=== PATIENT | female | born 1960 | race Caucasian/White ===

== ENCOUNTER 2019-07-29 10:16 | Emergency (ER) | payer MEDICARE ==
[~2019-07-29] VITALS: Ht 162.6 cm; Wt 113.6 kg
[2019-07-29 11:09] LABS: BASOPHILS 0.2 % (0-2); EOSINOPHILS 1.2 % (0-7); HEMATOCRIT 32.4 % (36.0-48.0); HEMOGLOBIN 10.4 g/dL (12-16); IMMATURE GRANULOCYTES 0.4 % (0-5); LYMPHOCYTES 21.2 % (15-50); MCH 26.1 pg (26.0-34.0); MCHC 32.1 g/dL (31.0-37.0); MCV 81.4 fL (80.0-100.0); MEAN PLATELET VOLUME 9.3 fL (7.4-10.4); MONOCYTES 10.3 % (2-11); NEUTROPHILS 66.7 % (40-80); PLATELET COUNT 292 10x3/uL (130-400); RBC 3.98 10x6/uL (4.00-5.40); RDW 15.2 % (11.5-14.5); WBC 9.6 10x3/uL (4.8-10.8)
[2019-07-29 11:17] LABS: CALC OSMOLALITY 248 mosm/kg (275-300); CALCIUM 8.4 mg/dL (8.5-10.1); CARBON DIOXIDE 24.8 mmol/L (21.0-32.0); CHLORIDE - SERUM 92 mmol/L (98-107); CREATININE - SERUM 0.8 mg/dL (0.6-1.3); GLUCOSE 105 mg/dL (74-106); SODIUM 125 mmol/L (136-145); UREA NITROGEN 3 mg/dL (7-18); eGFR NON AFRICAN AMERICAN 78 mL/min (90-120)
[2019-07-29] MEDS ORDERED: ANUSOL-HC25 MG RC (11:20)
[2019-07-29] MEDS ORDERED: TYLENOL ARTHRI650 MG PO (11:20)
[2019-07-29] MEDS ORDERED: BUSPAR5 MG PO (11:21)
[2019-07-29] MEDS ORDERED: BAYER CHEWABLE81 MG PO (11:21)
[2019-07-29] MEDS ORDERED: DONEPEZIL HCL10 MG PO (11:23)
[2019-07-29] MEDS ORDERED: DEPAKOTE ER250 MG PO (11:23)
[2019-07-29] MEDS ORDERED: COLACE100 MG PO (11:23)
[2019-07-29] MEDS ORDERED: BUTALB-APAP-CA1 EACH PO (11:24)
[2019-07-29] MEDS ORDERED: OMEGA-3100 MG PO (11:25)
[2019-07-29 11:27] LABS: ALBUMIN 3.2 g/dL (3.4-5.0); ALKALINE PHOSPHATASE 103 U/L (46-116); ALT (SGPT) 20 U/L (10-68); AMYLASE - SERUM 42 U/L (25-115); BILIRUBIN - TOTAL 0.25 mg/dL (0.2-1.3); LIPASE 175 U/L (73-393); TROPONIN-I < 0.017 ng/mL (0.000-0.060)
[2019-07-29] MEDS ORDERED: FISH OIL PO (11:27)
[2019-07-29] MEDS ORDERED: GUAIFENESI100 MG/5 M PO (11:28)
[2019-07-29] MEDS ORDERED: KEPPRA500 MG PO (11:38)
[2019-07-29] MEDS ORDERED: TIROSINT75 MCG PO (11:39)
[2019-07-29] MEDS ORDERED: LINZESS145 MCG PO (11:40)
[2019-07-29] MEDS ORDERED: MOBIC7.5 MG PO (11:40)
[2019-07-29] MEDS ORDERED: PROTONIX40 MG PO (11:41)
[2019-07-29] MEDS ORDERED: NAMENDA5 MG PO (11:41)
[2019-07-29] MEDS ORDERED: K-DUR20 MEQ PO (11:42)
[2019-07-29] MEDS ORDERED: SEROQUEL100 MG PO (11:42)
[2019-07-29] MEDS ORDERED: TRAZODONE HCL150 MG PO (11:43)
[2019-07-29] MEDS ORDERED: SEROQUEL300 MG PO (11:43)
[2019-07-29] MEDS ORDERED: ZOLOFT100 MG PO (11:43)
--- NOTE | 2019-07-29 11:43 | NUR ---
DR ISRAEL NOTIFIED AND REVIEWED PT'S BEHAVIOR AND ASSESSMENT RESULTS. PT IS A LOW RISK PER DR ISRAEL. DR. ISRAEL STATED TO GIVE RESOURCES TO PT AT TIME OF DISCHARGE. NO FURTHER ORDERS AT THIS TIME. RESOURCES REVIEWED WITH PT AND SHE VERBALIZED UNDERSTANDING.
[2019-07-29] MEDS ORDERED: ZYPREXA10 MG PO (11:44)
[2019-07-29 12:28] LABS: APPEARANCE CLEAR (CLEAR); BILIRUBIN NEGATIVE (NEGATIVE); COLOR COLORLESS (YELLOW); GLUCOSE NEGATIVE (NEGATIVE); KETONE NEGATIVE (NEGATIVE); NITRITE NEGATIVE (NEGATIVE); PROTEIN NEGATIVE (NEGATIVE); UROBILINOGEN NORMAL (NORMAL)
[2019-07-29 16:19] VITALS: Ht 162.6 cm; Wt 113.6 kg
[2019-07-29 22:30] VITALS: BP 105/70
== END 2019-07-29 22:30 | disposition other institution (70) ==
LOC: D.ER 10:16
PROVIDERS: Family Medicine
DX: E87.1 Hypo-osmolality and hyponatremia (principal); R10.9 Unspecified abdominal pain; F60.3 Borderline personality disorder; K31.84 Gastroparesis; K56.609 Unspecified intestinal obstruction, unspecified as to partial versus complete obstruction; E03.9 Hypothyroidism, unspecified; G62.9 Polyneuropathy, unspecified; R51 Headache

== ENCOUNTER 2019-08-03 09:46 | Inpatient (IN) | payer MEDICARE ==
[~2019-08-03] VITALS: Ht 162.6 cm; Wt 113.4 kg
[~2019-08-03 09:46] MED LIST: ANUSOL-HC25 MG RC; BAYER CHEWABLE81 MG PO; BUSPAR5 MG PO; BUTALB-APAP-CA1 EACH PO; COLACE100 MG PO; DEPAKOTE ER250 MG PO; DONEPEZIL HCL10 MG PO; FISH OIL PO; GUAIFENESI100 MG/5 M PO; K-DUR20 MEQ PO; KEPPRA500 MG PO; LINZESS145 MCG PO; MOBIC7.5 MG PO; NAMENDA5 MG PO; OMEGA-3100 MG PO; PROTONIX40 MG PO; SEROQUEL100 MG PO; SEROQUEL300 MG PO; TIROSINT75 MCG PO; TRAZODONE HCL150 MG PO; TYLENOL ARTHRI650 MG PO; ZOLOFT100 MG PO; ZYPREXA10 MG PO
--- NOTE | 2019-08-03 09:50 | NUR ---
PT AMB TO BR "I FEEL LIKE I NEED TO HAVE A BOWEL MOVEMENT" LARGE LIGHT BROWN WATERY STOOL
[2019-08-03 10:30] LABS: BASOPHILS 0.3 % (0-2); EOSINOPHILS 1.3 % (0-7); HEMATOCRIT 37.6 % (36.0-48.0); HEMOGLOBIN 11.8 g/dL (12-16); IMMATURE GRANULOCYTES 0.4 % (0-5); LYMPHOCYTES 25.6 % (15-50); MCH 26.5 pg (26.0-34.0); MCHC 31.4 g/dL (31.0-37.0); MCV 84.5 fL (80.0-100.0); MEAN PLATELET VOLUME 9.4 fL (7.4-10.4); MONOCYTES 13.1 % (2-11); NEUTROPHILS 59.3 % (40-80); PLATELET COUNT 287 10x3/uL (130-400); RBC 4.45 10x6/uL (4.00-5.40); RDW 15.9 % (11.5-14.5); WBC 7.5 10x3/uL (4.8-10.8)
[2019-08-03 10:47] LABS: CALC OSMOLALITY 261 mosm/kg (275-300); CALCIUM 8.4 mg/dL (8.5-10.1); CARBON DIOXIDE 22.7 mmol/L (21.0-32.0); CHLORIDE - SERUM 100 mmol/L (98-107); CREATININE - SERUM 0.8 mg/dL (0.6-1.3); GLUCOSE 85 mg/dL (74-106); POTASSIUM - SERUM 4.6 mmol/L (3.5-5.1); SODIUM 133 mmol/L (136-145); UREA NITROGEN 3 mg/dL (7-18); eGFR NON AFRICAN AMERICAN 78 mL/min (90-120)
--- NOTE | 2019-08-03 10:51 | NUR ---
URINE SPECIMEN OBTAINED, LABELED AT BS AND SENT TO LAB
[2019-08-03 10:55] LABS: ALBUMIN 3.3 g/dL (3.4-5.0); ALKALINE PHOSPHATASE 94 U/L (46-116); ALT (SGPT) 23 U/L (10-68); AMYLASE - SERUM 31 U/L (25-115); BILIRUBIN - TOTAL 0.25 mg/dL (0.2-1.3); LIPASE 145 U/L (73-393); PROTEIN - SERUM 7.1 g/dL (6.4-8.2)
[2019-08-03 10:56] LABS: TROPONIN-I < 0.017 ng/mL (0.000-0.060)
[2019-08-03 11:12] LABS: APPEARANCE CLEAR (CLEAR); BILIRUBIN NEGATIVE (NEGATIVE); COLOR YELLOW (YELLOW); GLUCOSE NEGATIVE (NEGATIVE); KETONE NEGATIVE (NEGATIVE); NITRITE NEGATIVE (NEGATIVE); PROTEIN NEGATIVE (NEGATIVE); SPECIFIC GRAVITY 1.015 (1.005-1.020); UROBILINOGEN NORMAL (NORMAL)
[2019-08-03 12:00] VITALS: BP 124/79
--- NOTE | 2019-08-03 12:24 | NUR ---
REPORT TO KATHY COLLADO
--- NOTE | 2019-08-03 12:30 | NUR ---
TRANSPORTED TO ROOM #2232, CONDITION STABLE. NGT PATENT UPON TRANSPORT. NS INFUSING UPON TRANSPORT TO ROOM
[2019-08-03 12:33] VITALS: BP 124/80
--- NOTE | 2019-08-03 12:42 | NUR ---
PATIENT TO ROOM AND TO BED AT THIS TIME., ADMITTED AND ASSESSED. IV INTACT. STATES SHE WANTS HER MEDS AT THIS TIME. EXPLAINED I HAD TO WAIT FOR THE PHYSICIAN TO OK THEM AND THAT RIGHT NOW SHE IS NPO. VERBALIZED UNDERSTANDING. CALL LIGHT WITHIN REACH.
--- NOTE | 2019-08-03 12:59 | MORECARE ---
CASE MANAGEMENT DISCHARGE SUMMARY PATIENT: ARTURO PITT UNIT: [id number] ADM DATE: 08/03/19 AGE: 59 : 64 SEX: F ROOM/BED: D.[facility]2 AUTHOR: HORTENCIA RADER PHYSICIAN: REFERRING PHYSICIAN: ABRAHAM CASTILLO MD DATE OF SERVICE: 08/03/19 Discharge Plan Patient Name: ARTURO PITT Facility: [facility]:[place] : 1960 Planned Disposition: SNF w Planned Readmission Anticipated Discharge Date: Discharge Date: Expected LOS: Initial Reviewer: [email or web address] Initial Review Date: 08/03/2019 Generated: 08/03/19 1:59 pm DCPIA - Discharge Planning Initial Assessment Updated by [email or web address]: Bel Nguyen on 08/03/19 12:55 pm * Is the patient Alert and Oriented? Yes * How many steps to enter\exit or inside your home? none * PCP Dr. Castillo - [facility] * Pharmacy [facility] * Preadmission Environment [facility] * Facility Name [facility] [place] * ADLs Partial Dependent * Partial ADLs (Assistance needed) Ambulation Bathing Medication Management * Equipment Bedside Commode * List name and contact numbers for known caregivers / representatives who currently or will assist patient after discharge: Suleman Pitt - Health Care Proxy/Brother - [phone] * Verbal permission to speak to the caregivers and representatives has been obtained from the patient. Yes * Additional services required to return to the preadmission environment? No * Can the patient safely return to the preadmission environment? Yes Patient Name: ARTURO PITT Page [id number] at 1259 All edits/amendments must be made on the electronic document DICTATION DATE: 08/03/19 1259 FIRE PATROL: EMILIE 08/03/19 1259 RPT#: [id number] DC DATE: STATUS: ADM IN [facility] [address] [place] [address] END OF REPORT
[2019-08-03 13:00] VITALS: BP 126/71; BMI 43.0
--- NOTE | 2019-08-03 13:20 | MORECARE ---
CASE MANAGEMENT DISCHARGE SUMMARY PATIENT: ARTURO PITT UNIT: [id number] ADM DATE: 08/03/19 AGE: 59 : 64 SEX: F ROOM/BED: D.2232 AUTHOR: DIOR,DOC PHYSICIAN: REFERRING PHYSICIAN: ABRAHAM CASTILLO MD DATE OF SERVICE: 08/03/19 Discharge Plan Patient Name: ARTURO PITT Facility: [facility]:[place] : 1960 Planned Disposition: SNF w Planned Readmission Anticipated Discharge Date: Discharge Date: Expected LOS: Initial Reviewer: [email or web address] Initial Review Date: 08/03/2019 Generated: 08/03/19 2:19 pm DCP- Discharge Planning Updated by [email or web address]: Bel Nguyen on 08/03/19 12:[address] DC PLAN: Return to [facility] - Resident. ANTICIPATED DC NEEDS: Unknown dc needs CM met with patient to complete initial dc planning assessment. CM educated patient on the CM role and verbal consent given by patient to complete assessment. CM verified patient's address, phone number, and emergency contact phone numbers. Patient lives at [facility]. She had many concerns regarding the assisted. 1. She wants rehab but they haven't started it at this time. 2. They are not providing her with oxygen at [facility]. She reports she wears 5 liters @[facility]. 3. She reports APS sent her to the assisted after she got evicted from her apartment. 4. They have not stared giving her several of her medications they are working on getting authorization for. CM called the facility and spoke to Ivy - Associate Curator. Addressed her concerns and Ivy stated 1. They were evaluating her for rehab and she started having SI and had to go to Inpatient Psych. Since she has been back she has had abd pain and they have not been able to screen her for rehab. She stated she was not aware of the need for O2 that the patient has not informed them of this info. 3.She was not admitted by AMS she signed herself in from a different Nursing facility. Ivy stated she will address all her concerns when she returns to the facility. At discharge patient plans to return to [facility] where she resides and feels this is a safe discharge. Transportation provider at discharge will be the nursing facility. CM will continue to follow and will assist as needed with dc plans/needs. Bel Nguyen RN, [facility] DCPIA - Discharge Planning Initial Assessment Updated by [email or web address]: Bel Nguyen on 08/03/19 12:55 pm * Is the patient Alert and Oriented? Yes * How many steps to enter\exit or inside your home? none * PCP Dr. Castillo - [facility] MD> * Pharmacy [facility] * Preadmission Environment [facility] * Facility Name [facility] * ADLs Partial Dependent * Partial ADLs (Assistance needed) Ambulation Bathing Medication Management * Equipment Bedside Commode * List name and contact numbers for known caregivers / representatives who currently or will assist patient after discharge: Suleman Pitt - Health Care Proxy/Brother - [phone] * Verbal permission to speak to the caregivers and representatives has been obtained from the patient. Yes * Additional services required to return to the preadmission environment? No * Can the patient safely return to the preadmission environment? Yes Last DP export: 08/03/19 11:59 Patient Name: ARTURO PITT Page [id number] at 1320 All edits/amendments must be made on the electronic document DICTATION DATE: 08/03/191318 PROJECT CONSULTANT: EMILIE 08/03/191318 RPT#: [id number] DC DATE: STATUS: ADM IN [facility] [address] [place] [address] END OF REPORT
--- NOTE | 2019-08-03 13:45 | NUR ---
PATIENT YELLING AND CUSSING STATING SHE WANTS HER MEDS AND SHE LEAVING AMA. NOTIFIED CHEYANNE.
--- NOTE | 2019-08-03 15:32 | MORECARE ---
CASE MANAGEMENT DISCHARGE SUMMARY PATIENT: ARTURO PITT UNIT: [id number] ADM DATE: 08/03/19 AGE: 59 : 64 SEX: F ROOM/BED: D.2232 AUTHOR: DIOR,DOC PHYSICIAN: REFERRING PHYSICIAN: ABRAHAM CASTILLO MD DATE OF SERVICE: 08/03/19 Discharge Plan Patient Name: ARTURO PITT Facility: [facility]:[place] : 1960 Planned Disposition: SNF w Planned Readmission Anticipated Discharge Date: Discharge Date: Expected LOS: Initial Reviewer: [email or web address] Initial Review Date: 08/03/2019 Generated: 08/03/19 4:31 pm DCP- Discharge Planning Updated by [email or web address]: Bel Nguyen on 08/03/19 12:[address] DC PLAN: Return to [facility] - Resident. ANTICIPATED DC NEEDS: Unknown dc needs CM met with patient to complete initial dc planning assessment. CM educated patient on the CM role and verbal consent given by patient to complete assessment. CM verified patient's address, phone number, and emergency contact phone numbers. Patient lives at [facility]. She had many concerns regarding the fdc. 1. She wants rehab but they haven't started it at this time. 2. They are not providing her with oxygen at [facility]. She reports she wears 5 liters @[facility]. 3. She reports APS sent her to the fdc after she got evicted from her apartment. 4. They have not stared giving her several of her medications they are working on getting authorization for. CM called the facility and spoke to Ivy - Warehouse Director. Addressed her concerns and Ivy stated 1. They were evaluating her for rehab and she started having SI and had to go to Inpatient Psych. Since she has been back she has had abd pain and they have not been able to screen her for rehab. She stated she was not aware of the need for O2 that the patient has not informed them of this info. 3.She was not admitted by AMS she signed herself in from a different Nursing facility. Ivy stated she will address all her concerns when she returns to the facility. At discharge patient plans to return to [facility] where she resides and feels this is a safe discharge. Transportation provider at discharge will be the nursing facility. CM will continue to follow and will assist as needed with dc plans/needs. Bel Nguyen RN, [facility] DCPIA - Discharge Planning Initial Assessment Updated by [email or web address]: Bel Nguyen on 08/03/19 12:55 pm * Is the patient Alert and Oriented? Yes * How many steps to enter\exit or inside your home? none * PCP Dr. Castillo - [facility] MD> * Pharmacy [facility] * Preadmission Environment [facility] * Facility Name [facility] * ADLs Partial Dependent * Partial ADLs (Assistance needed) Ambulation Bathing Medication Management * Equipment Bedside Commode * List name and contact numbers for known caregivers / representatives who currently or will assist patient after discharge: Suleman Pitt - Health Care Proxy/Brother - [phone] * Verbal permission to speak to the caregivers and representatives has been obtained from the patient. Yes * Additional services required to return to the preadmission environment? No * Can the patient safely return to the preadmission environment? Yes Last DP export: 08/03/19 12:20 Patient Name: ARTURO PITT Page [id number] at 1532 All edits/amendments must be made on the electronic document DICTATION DATE: 08/03/191530 PILOT CONTROL OPERATOR HELPER: EMILIE 08/03/191530 RPT#: [id number] DC DATE: STATUS: ADM IN [facility] [address] [place] [address] END OF REPORT
--- NOTE | 2019-08-03 16:00 | NUR ---
PATIENT SUICIDE SCREENING REDONE. PATIENT STATED SHE IS GOING TO KILL HERSELF. NOTIFIED SWIMMING POOL CLEANER. CALL LIGHT WITHIN REACH.
[2019-08-03 16:27] VITALS: BP 158/44
--- NOTE | 2019-08-03 16:50 | NUR ---
NEW IV RESTARTED IN LEFT ARM. RIGHT ARM IV LEAKING. REMOVED WITH CATH TIP INTACT. CALL LIGHT WITHIN REACH.
--- NOTE | 2019-08-03 17:08 | NUR ---
DR ISRAEL NOTIFIED AND SITTER ORDERED. SITTER AT BEDSIDE. NOTIFIED CHARGE NURSE AND ATTENDING IN REGARDS TO ASSESSMENT FINDINGS. RESOURCES GIVEN TO PT AND SAFETY PLAN INITIATED.
--- NOTE | 2019-08-03 18:45 | NUR ---
PATIENT IN CHAIR WITH IV INTAQCT. SITTER AT BEDSIDE. NO COMPLAINTS AT THIS TIME. CALL LIGHT WITHN REACH.
--- NOTE | 2019-08-03 19:47 | NUR ---
C/O HEADACHE. TYLENOL 650MG PO GIVEN FOR HEADACHE PAIN.
--- NOTE | 2019-08-03 19:47 | NUR ---
ASSESSMENT PER FLOWSHEET. IV PATENT LEFT ARM NS AT 100CC'S/HR. PSYCH NURSE SITTER AT BEDSIDE.ABD. DISTENDED AND SOFT. NGT PATENT AND CONNECTED TO LIWS. LIGHT GREEN DRAINAGE NOTED.
[2019-08-03 20:40] VITALS: BP 137/83
--- NOTE | 2019-08-03 22:00 | NUR ---
C/O ANXIETY PROBLEMS. ATIVAN 0.5MG IVP GIVEN FOR ANXIETY.
--- NOTE | 2019-08-04 00:30 | NUR ---
REQUESTING HEADACHE MED. TYLENOL 650MG PO GIVEN FOR HEADACHE PAIN.
[2019-08-04 01:00] VITALS: BP 162/90
--- NOTE | 2019-08-04 03:07 | NUR ---
CONTINUES TO ASK FOR MORE TYLENOL. INFORMED FREQUENTLY ORDERS ARE Q4HR ONLY AND IT IS TOO EARLY FOR MORE TYLENOL. PATIENT STATES CAN'T SLEEP WITHOUT HER HOME MEDS. PT HAS BEEN TOLD NUMEROUS TIME THAT HER HOME MEDS ARE ON HOLD BECAUSE OF THE SBO.
--- NOTE | 2019-08-04 03:59 | NUR ---
IV INFILTRATED AND REMOVED PATIENT REFUSED IV RESTART. PHONE REMOVED FROM ROOM PATIENT UNDER PSYCH WATCH WITH SITTER. CALL LIGHT PLACED BEHIND BED. SITTER AT BEDSIDE WAS TOLD BY BJ STOVER RN TO REMOVE ALL CORDS AND PHONE FROM ROOM. INFORMED PATIENT THAT WHILE SHE IS UNDER PSYCH WATCH SHE WILL NOT BE ABLE TO HAVE THESE ITEMS IN THE ROOM
[2019-08-04 04:47] VITALS: BP 140/83
--- NOTE | 2019-08-04 05:11 | NUR ---
ALFREDO CHAVEZ HERE TO ATTEMPT IV. UNABLE TO OBTAIN IV SITE.
[2019-08-04 06:38] LABS: BASOPHILS 0.2 % (0-2); EOSINOPHILS 2.2 % (0-7); HEMATOCRIT 35.6 % (36.0-48.0); HEMOGLOBIN 11.6 g/dL (12-16); IMMATURE GRANULOCYTES 0.1 % (0-5); LYMPHOCYTES 25.2 % (15-50); MCH 27.6 pg (26.0-34.0); MCHC 32.6 g/dL (31.0-37.0); MCV 84.6 fL (80.0-100.0); MEAN PLATELET VOLUME 9.3 fL (7.4-10.4); MONOCYTES 8.2 % (2-11); NEUTROPHILS 64.1 % (40-80); PLATELET COUNT 311 10x3/uL (130-400); RBC 4.21 10x6/uL (4.00-5.40); RDW 16.1 % (11.5-14.5); WBC 8.1 10x3/uL (4.8-10.8)
[2019-08-04 06:55] LABS: ALBUMIN 3.3 g/dL (3.4-5.0); ALKALINE PHOSPHATASE 97 U/L (46-116); ALT (SGPT) 21 U/L (10-68); BILIRUBIN - TOTAL 0.28 mg/dL (0.2-1.3); CALC OSMOLALITY 275 mosm/kg (275-300); CALCIUM 8.5 mg/dL (8.5-10.1); CARBON DIOXIDE 27.1 mmol/L (21.0-32.0); CHLORIDE - SERUM 105 mmol/L (98-107); CREATININE - SERUM 0.7 mg/dL (0.6-1.3); GLUCOSE 93 mg/dL (74-106); MAGNESIUM - SERUM 2.3 mg/dL (1.8-2.4); PHOSPHOROUS 3.6 mg/dL (2.5-4.9); PROTEIN - SERUM 7.3 g/dL (6.4-8.2); SODIUM 140 mmol/L (136-145); UREA NITROGEN 3 mg/dL (7-18); eGFR NON AFRICAN AMERICAN > 90 mL/min (90-120)
[2019-08-04 07:01] LABS: POTASSIUM - SERUM 3.4 mmol/L (3.5-5.1)
--- NOTE | 2019-08-04 07:53 | NUR ---
ALERT AND ORIENTED. LUNGS CLEAR BILATERALLY. HEART SOUNDS S1 AND S2 HEARD IN ALL [place]. BOWEL SOUNDS HYPOACTIVE X 4. SKIN INTACT WITHOUT REDNESS. NG TUBE PATENT TO LEFT NARE. REFUSES IV. REQUESTING PAIN MEDICATION "FOR HEADACHE." REFUSES TYLENOL. NO PAIN MEDICATION ON OCT. BED LOW. CALL BETTENCOURT AND PERSONAL ITEMS IN REACH. WILL CONTINUE TO MONITOR.
--- NOTE | 2019-08-04 08:35 | NUR ---
PATIENT ASSISTED TO CHAIR AT BEDSIDE PER REQUEST.
[2019-08-04 09:02] VITALS: BP 149/96
--- NOTE | 2019-08-04 09:04 | NUR ---
NG TUBE CLAMPED D/T GIVEN ANXIETY AND NAUSEA MEDICATION PO.
--- NOTE | 2019-08-04 09:35 | NUR ---
NG TUBE UNCLAMPED.
--- NOTE | 2019-08-04 09:42 | NUR ---
ATTEMPTED TO CALL PATIENT'S BROTHER PER REQUEST. NO ANSWER. VOICEMAIL LEFT TO CALL HOSPITAL BACK.
--- NOTE | 2019-08-04 09:45 | NUR ---
NG TUBE CLAMPED AND GIVEN PRN TYLENOL PER REQUEST.
--- NOTE | 2019-08-04 10:43 | NUR ---
PATIENT UNHOOKED FROM NG TUBE PER REQUEST TO USE RESTROOM AND WALK LAPS AROUND NURSES STATION WITH SITTER. WALKING LAPS NOW.
--- NOTE | 2019-08-04 11:00 | NUR ---
PATIENT BACK IN ROOM IN CHAIR AT BS AND HOOKED BACK TO NG SUCTION.
--- NOTE | 2019-08-04 11:16 | NUR ---
NG CANISTER REPLACED. 700ML OUTPUT NOTED. WARM BLANKET GIVEN PER REQUEST. WARM COMPRESS APPLIED TO BACK OF NECK TO HELP RELIEVE TENSION. PATIENT DENIES FURTHER NEEDS. WILL CONTINUE TO MONITOR.
[2019-08-04 12:55] VITALS: BP 149/83
--- NOTE | 2019-08-04 13:45 | NUR ---
PATIENT REQUESTING PAIN MEDICATION. ONLY TYLENOL ON OCT. STATES WILL TAKE TYLENOL. TYLENOL BROUGHT TO ROOM AND PATIENT STATES TYLENOL DOES NOT WORK FOR HER. STATES WANTS PSYCH MEDICATIONS RESTARTED. ALREADY SPOKE WITH CHRIST HENSON ABOUT THIS THIS MORNING. STATED WAS NOT RESTARTING MEDS AT THIS TIME. PATIENT HAS BEEN SEEN BY DR ISRAEL. PYCH NURSE DOWNSTAIRS STATES PATIENT IS STAYING UNTIL REFERRED TO [facility] ANOTHER FACILITY.
--- NOTE | 2019-08-04 14:00 | NUR ---
SPOKE WITH ISXTO POLO WHO STATES CAN GIVE ONE TIME DOSE IMITREX 6MG. NOTIFIED CHRIST THAT PATIENT STATES WANTS TO GO TO [place] AND IS GOING TO [facility]ERS AGAINST CHRIST AND DR CASTILLO.
--- NOTE | 2019-08-04 14:04 | NUR ---
PT CONTINUES TO BE SUICIDAL. SITTER AT BEDSIDE. DR. ISRAEL CONSULTED AND EXPRESSED NEED FOR INPATIENT PSYCH AT DISCHARGE ONCE MEDICALLY STABLE. RELAYED INFORMATION TO UMAIR Edwards NURSE LACE MACHINE OPERATOR.
[2019-08-04 14:11] VITALS: Ht 162.6 cm; Wt 113.4 kg
--- NOTE | 2019-08-04 14:12 | NUR ---
ONE TIME DOSE IMITREX GIVEN. PATIENT NOW STATES WANTS TO GO TO INPATIENT PSYCH AT [facility]. CASE MANAGEMENT NOTIFIED.
--- NOTE | 2019-08-04 14:39 | MORECARE ---
CASE MANAGEMENT DISCHARGE SUMMARY PATIENT: ARTURO PITT UNIT: [id number] ADM DATE: 08/03/19 AGE: 59 : 64 SEX: F ROOM/BED: D.2232 AUTHOR: DIOR,DOC PHYSICIAN: REFERRING PHYSICIAN: ABRAHAM CASTILLO MD DATE OF SERVICE: 08/04/19 Discharge Plan Patient Name: ARTURO PITT Facility: [facility]:[place] : 1960 Planned Disposition: SNF w Planned Readmission Anticipated Discharge Date: Discharge Date: Expected LOS: Initial Reviewer: [email or web address] Initial Review Date: 08/03/2019 Generated: 08/04/19 3:38 pm Comments DCP- Discharge Planning Updated by [email or web address]: Ailynyamileth Vasquez on 08/04/19 1:[address] Patient is stating she wants to go to Inpatient Psychiatric Unit at [facility] in [place]. I have an order to transfer when stable. I spoke with Ivy at [facility] and she states she had recently been at [facility] at [facility]. I called the [facility] transfer team and Adalberto states to call back when patient is medically stable to be transferred. CM will continue to follow and assist with discharge planning/needs. DCP- Discharge Planning Updated by [email or web address]: Belridge Nguyen on 08/03/19 12:[address] DC PLAN: Return to [facility] - Resident. ANTICIPATED DC NEEDS: Unknown dc needs CM met with patient to complete initial dc planning assessment. CM educated patient on the CM role and verbal consent given by patient to complete assessment. CM verified patient's address, phone number, and emergency contact phone numbers. Patient lives at [facility]. She had many concerns regarding the residential. 1. She wants rehab but they haven't started it at this time. 2. They are not providing her with oxygen at [facility]. She reports she wears 5 liters @[facility]. 3. She reports APS sent her to the residential after she got evicted from her apartment. 4. They have not stared giving her several of her medications they are working on getting authorization for. CM called the facility and spoke to Ivy - Print Journalist. Addressed her concerns and Ivy stated 1. They were evaluating her for rehab and she started having SI and had to go to Inpatient Psych. Since she has been back she has had abd pain and they have not been able to screen her for rehab. She stated she was not aware of the need for O2 that the patient has not informed them of this info. 3.She was not admitted by AMS she signed herself in from a different Nursing facility. Ivy stated she will address all her concerns when she returns to the facility. At discharge patient plans to return to [facility] where she resides and feels this is a safe discharge. Transportation provider at discharge will be the nursing facility. CM will continue to follow and will assist as needed with dc plans/needs. Bel Nguyen RN, [facility] DCPIA - Discharge Planning Initial Assessment Updated by [email or web address]: Bel Nguyen on 08/03/19 12:55 pm * Is the patient Alert and Oriented? Yes * How many steps to enter\exit or inside your home? none * PCP Dr. Castillo - [facility] MD> * Pharmacy [facility] * Preadmission Environment Skilled Nursing [facility] * Facility Name [facility] * ADLs Partial Dependent * Partial ADLs (Assistance needed) Ambulation Bathing Medication Management * Equipment Bedside Commode * List name and contact numbers for known caregivers / representatives who currently or will assist patient after discharge: Suleman Pitt - Health Care Proxy/Brother - [phone] * Verbal permission to speak to the caregivers and representatives has been obtained from the patient. Yes * Additional services required to return to the preadmission environment? No * Can the patient safely return to the preadmission environment? Yes Last DP export: 08/03/19 2:32 Patient Name: ARTURO PITT Page [id number] at 1439 All edits/amendments must be made on the electronic document DICTATION DATE: 08/04/191437 PANTS PRESSER AUTOMATIC: EMILIE 08/04/191437 RPT#: [id number] DC DATE: STATUS: ADM IN [facility] [address] [place] [address] END OF REPORT
--- NOTE | 2019-08-04 15:02 | NUR ---
PATIENT IN BED SLEEPING. WILL CONTINUE TO MONITOR.
--- NOTE | 2019-08-04 16:11 | NUR ---
PATIENT BLOOD PRESSURE 150/98 MANUALLY.
[2019-08-04 16:38] VITALS: BP 160/98
--- NOTE | 2019-08-04 17:52 | NUR ---
PATIENT UNHOOKED FROM NG TUBE TO WALK AROUND UNIT WITH SITTER.
--- NOTE | 2019-08-04 20:00 | NUR ---
ASSESSMENT PER FLOWSHEET. SITTER AT BEDSIDE. NGT TO LEFT NARE CONNECTED TO LIWS. CLEAR FLUID RETURN. ABDOMEN DISTENDED.BS HYPOACTIVE X4.
[2019-08-04 20:35] VITALS: BP 141/78
--- NOTE | 2019-08-04 22:38 | NUR ---
PT BECOMING MORE AND MORE AGITATED. YELLING AT STAFF. WANTING TO GO TO [facility]. WANTS HER BROTHER CALLED TO PICK HER UP. PULLS OUT NGT AND CONSTANTLY RUNNING TO SINK TO DRINK WATER. NON COMPLIANT WITH NPO STATUS. STUDENT DEVELOPMENT SPECIALIST IS AWARE OF PATIENTS BEHAVIOR. ATIVAN 0.5MG PO GIVEN FOR AGITATION. PT STATES HAS NOT HAD A BATH IN 3 DAYS SPONGE BATH WITH LINENS CHANGE DONE.
--- NOTE | 2019-08-05 01:05 | NUR ---
CALM AT PRESENT SITTING UP IN CHAIR AT BEDSIDE. SITTER OUTSIDE OF DOOR.
[2019-08-05 01:26] VITALS: BP 173/92
--- NOTE | 2019-08-05 03:53 | NUR ---
EYES CLOSED RESPIRATIONS WITH EASE AND UNLABORED.
[2019-08-05 05:20] VITALS: BP 138/79
[2019-08-05 07:35] LABS: BASOPHILS 0.3 % (0-2); EOSINOPHILS 2.2 % (0-7); HEMATOCRIT 36.7 % (36.0-48.0); HEMOGLOBIN 11.2 g/dL (12-16); IMMATURE GRANULOCYTES 0.3 % (0-5); LYMPHOCYTES 26.3 % (15-50); MCH 25.8 pg (26.0-34.0); MCHC 30.5 g/dL (31.0-37.0); MCV 84.6 fL (80.0-100.0); MEAN PLATELET VOLUME 9.3 fL (7.4-10.4); MONOCYTES 9.5 % (2-11); NEUTROPHILS 61.4 % (40-80); PLATELET COUNT 308 10x3/uL (130-400); RBC 4.34 10x6/uL (4.00-5.40); RDW 16.1 % (11.5-14.5); WBC 7.2 10x3/uL (4.8-10.8)
[2019-08-05 07:39] LABS: CALC OSMOLALITY 275 mosm/kg (275-300); CALCIUM 8.8 mg/dL (8.5-10.1); CARBON DIOXIDE 28.6 mmol/L (21.0-32.0); CHLORIDE - SERUM 105 mmol/L (98-107); CREATININE - SERUM 0.5 mg/dL (0.6-1.3); GLUCOSE 99 mg/dL (74-106); POTASSIUM - SERUM 4.3 mmol/L (3.5-5.1); SODIUM 140 mmol/L (136-145); UREA NITROGEN 5 mg/dL (7-18); eGFR NON AFRICAN AMERICAN > 90 mL/min (90-120)
--- NOTE | 2019-08-05 08:10 | NUR ---
AWAKE AND ALERT. ORIENTED X3. WANTS TO BE TRANSFERRED TO PSYCH AT [facility]. SPOKE WITH LAZARA MOYA APN. LUNGS ARE CLEAR BILATERALLY, NO COUGH NOTED. SKIN IS INTACT WITHOUT REDNESS. NO IV ACCESS AT THIS TIME. DENIES NEEDS.
--- NOTE | 2019-08-05 08:29 | MORECARE ---
CASE MANAGEMENT DISCHARGE SUMMARY PATIENT: ARTURO PITT UNIT: [id number] ADM DATE: 08/03/19 AGE: 59 : 64 SEX: F ROOM/BED: D.2232 AUTHOR: DIOR,DOC PHYSICIAN: REFERRING PHYSICIAN: ABRAHAM CASTILLO MD DATE OF SERVICE: 08/05/19 Discharge Plan Patient Name: ARTURO PITT Facility: [facility]:[place] : 1960 Planned Disposition: SNF w Planned Readmission Anticipated Discharge Date: Discharge Date: Expected LOS: Initial Reviewer: [email or web address] Initial Review Date: 08/03/2019 Generated: 08/05/19 9:29 am Comments DCP- Discharge Planning Updated by [email or web address]: Ailynyamileth Vasquez on 08/04/19 1:[address] Patient is stating she wants to go to Inpatient Psychiatric Unit at [facility] in [place]. I have an order to transfer when stable. I spoke with Ivy at [facility] and she states she had recently been at [facility]. I called the [facility]mit transfer team and Adalberto states to call back when patient is medically stable to be transferred. CM will continue to follow and assist with discharge planning/needs. DCP- Discharge Planning Updated by [email or web address]: Bel Nguyen on 08/03/19 12:[address] DC PLAN: Return to [facility] - Resident. ANTICIPATED DC NEEDS: Unknown dc needs CM met with patient to complete initial dc planning assessment. CM educated patient on the CM role and verbal consent given by patient to complete assessment. CM verified patient's address, phone number, and emergency contact phone numbers. Patient lives at [facility]. She had many concerns regarding the skilled nursing. 1. She wants rehab but they haven't started it at this time. 2. They are not providing her with oxygen at HS. She reports she wears 5 liters @hs. 3. She reports APS sent her to the skilled nursing after she got evicted from her apartment. 4. They have not stared giving her several of her medications they are working on getting authorization for. CM called the facility and spoke to Ivy - Repairer Pump. Addressed her concerns and Ivy stated 1. They were evaluating her for rehab and she started having SI and had to go to Inpatient Psych. Since she has been back she has had abd pain and they have not been able to screen her for rehab. She stated she was not aware of the need for O2 that the patient has not informed them of this info. 3.She was not admitted by AMS she signed herself in from a different Nursing facility. Ivy stated she will address all her concerns when she returns to the facility. At discharge patient plans to return to [facility] where she resides and feels this is a safe discharge. Transportation provider at discharge will be the nursing facility. CM will continue to follow and will assist as needed with dc plans/needs. Bel Nguyen RN, [facility] DCPIA - Discharge Planning Initial Assessment Updated by [email or web address]: Bel Nguyen on 08/03/19 12:55 pm * Is the patient Alert and Oriented? Yes * How many steps to enter\exit or inside your home? none * PCP Dr. Castillo - [facility] > * Pharmacy [facility] * Preadmission Environment [facility] * Facility Name [facility] * ADLs Partial Dependent * Partial ADLs (Assistance needed) Ambulation Bathing Medication Management * Equipment Bedside Commode * List name and contact numbers for known caregivers / representatives who currently or will assist patient after discharge: Suleman Pitt - Health Care Proxy/Brother - [phone] * Verbal permission to speak to the caregivers and representatives has been obtained from the patient. Yes * Additional services required to return to the preadmission environment? No * Can the patient safely return to the preadmission environment? Yes External Providers External Provider: [facility] Next Contact Date: Service Request Date: Service Type: Resolution: Reviewer: Comments: Last DP export: 08/04/19 1:39 Patient Name: ARTURO PITT Page [id number] at 0829 All edits/amendments must be made on the electronic document DICTATION DATE: 08/05/19828 COMPLIANCE MONITOR: EMILIE 08/05/19828 RPT#: [id number] DC DATE: STATUS: ADM IN [facility] [address] [place] [address] END OF REPORT
--- NOTE | 2019-08-05 08:36 | MORECARE ---
CASE MANAGEMENT DISCHARGE SUMMARY PATIENT: ARTURO PITT UNIT: [id number] ADM DATE: 08/03/19 AGE: 59 : 64 SEX: F ROOM/BED: D.2232 AUTHOR: DIOR,DOC PHYSICIAN: REFERRING PHYSICIAN: ABRAHAM CASTILLO MD DATE OF SERVICE: 08/05/19 Discharge Plan Patient Name: ARTURO PITT Facility: [facility]:[place] : 1960 Planned Disposition: SNF w Planned Readmission Anticipated Discharge Date: Discharge Date: Expected LOS: Initial Reviewer: [email or web address] Initial Review Date: 08/03/2019 Generated: 08/05/19 9:36 am Comments DCP- Discharge Planning Updated by [email or web address]: Ailyn Vasquez on 08/05/19 7:[address] Jad Viera would like patient transferred to inpatient psychiatric facility at [facility], she has been there recently. Patient also is asking to go to [facility]. She refuses KUB this morning. I called Anurag at [facility] Transfer [facility] and informed after calling brew house supervisor, Jayla. Clinical faxed to Transfer Center. delivery coordinator (Fanta) and primary care nurse (Karin) informed. CM will continue to follow and assist with discharge planning/needs. DCP- Discharge Planning Updated by [email or web address]: Ailyn Vasquez on 08/04/19 1:[address] Patient is stating she wants to go to Inpatient Psychiatric Unit at [facility] in [place]. I have an order to transfer when stable. I spoke with Ivy at [facility] and she states she had recently been at [facility] at [facility]. I called the [facility] Admit transfer team and Adalberto states to call back when patient is medically stable to be transferred. CM will continue to follow and assist with discharge planning/needs. DCP- Discharge Planning Updated by [id number]: Bel Nguyen on 08/03/19 12:[address] DC PLAN: Return to [facility] - Resident. ANTICIPATED DC NEEDS: Unknown dc needs CM met with patient to complete initial dc planning assessment. CM educated patient on the CM role and verbal consent given by patient to complete assessment. CM verified patient's address, phone number, and emergency contact phone numbers. Patient lives at [facility]. She had many concerns regarding the prison. 1. She wants rehab but they haven't started it at this time. 2. They are not providing her with oxygen at HS. She reports she wears 5 liters @hs. 3. She reports APS sent her to the prison after she got evicted from her apartment. 4. They have not stared giving her several of her medications they are working on getting authorization for. CM called the facility and spoke to Ivy - Frame Sample And Pattern Supervisor. Addressed her concerns and Ivy stated 1. They were evaluating her for rehab and she started having SI and had to go to Inpatient Psych. Since she has been back she has had abd pain and they have not been able to screen her for rehab. She stated she was not aware of the need for O2 that the patient has not informed them of this info. 3.She was not admitted by AMS she signed herself in from a different Nursing facility. Ivy stated she will address all her concerns when she returns to the facility. At discharge patient plans to return to [facility] where she resides and feels this is a safe discharge. Transportation provider at discharge will be the nursing facility. CM will continue to follow and will assist as needed with dc plans/needs. Bel Nguyen RN, [facility] DCPIA - Discharge Planning Initial Assessment Updated by [email or web address]: Bel Nguyen on 08/03/19 12:55 pm * Is the patient Alert and Oriented? Yes * How many steps to enter\exit or inside your home? none * [facility] > * [facility]acy [facility] * Preadmission Environment [facility] * Facility Name [facility] * ADLs Partial Dependent * Partial ADLs (Assistance needed) Ambulation Bathing Medication Management * Equipment Bedside Commode * List name and contact numbers for known caregivers / representatives who currently or will assist patient after discharge: Suleman Pitt - Health Care Proxy/Brother - [phone] * Verbal permission to speak to the caregivers and representatives has been obtained from the patient. Yes * Additional services required to return to the preadmission environment? No * Can the patient safely return to the preadmission environment? Yes Last DP export: 08/05/19 7:29 Patient Name: ARTURO PITT Page [phone] at 0836 All edits/amendments must be made on the electronic document DICTATION DATE: 08/05/19835 CHAIN MENDER: EMILIE 08/05/19835 RPT#: [id number] DC DATE: STATUS: ADM IN [facility] [address] [place] [address] END OF REPORT
--- NOTE | 2019-08-05 10:00 | NUR ---
IS REQUESTED AND DRINKING LOTS OF FLUIDS. DISCUSSED THE REASONS NOT TO OVERLOAD HER STOMACH AT THIS TIME. SHE AGREED TO EASE OFF. WILL MONITOR.
[2019-08-05 10:53] VITALS: BP 126/81
--- NOTE | 2019-08-05 11:34 | MORECARE ---
CASE MANAGEMENT DISCHARGE SUMMARY PATIENT: ARTURO PITT UNIT: [id number] ADM DATE: 08/03/19 AGE: 59 : 64 SEX: F ROOM/BED: D.2232 AUTHOR: DIOR,DOC PHYSICIAN: REFERRING PHYSICIAN: ABRAHAM CASTILLO MD DATE OF SERVICE: 08/05/19 Discharge Plan Patient Name: ARTURO PITT Facility: [facility]:[place] : 1960 Planned Disposition: SNF w Planned Readmission Anticipated Discharge Date: Discharge Date: Expected LOS: Initial Reviewer: [email or web address] Initial Review Date: 08/03/2019 Generated: 08/05/19 12:34 pm Comments DCP- Discharge Planning Updated by [email or web address]: Ailyn Vasquez on 08/05/19 10:[address] Anurag for the Transfer Center states that [facility] and [facility] inpatient rehab units have denied admission. [place] states she can have terminal computer operator outpatient psychiatric care and [facility] states a aidee psych unit is more appropriate (per Anurag). I spoke with Andi, and he wants to continue to find an inpatient psychiatric facility for admission, and I have called Anurag and informed. CM will continue to follow and assist with discharge planning/needs. DCP- Discharge Planning Updated by [id number]: Ailyn Vasquez on 08/05/19 7:[address] Jad Viera would like patient transferred to inpatient psychiatric facility at [facility], she has been there recently. Patient also is asking to go to [facility]. She refuses KUB this morning. I called Anurag at [facility] Admit Transfer Center and informed after calling hotel housekeeper, Jayla. Clinical faxed to Transfer Center. assisted living coordinator (Fanta) and primary care nurse (Karin) informed. CM will continue to follow and assist with discharge planning/needs. DCP- Discharge Planning Updated by [id number]: Ailyn Vasquez on 08/04/19 1:[address] Patient is stating she wants to go to Inpatient Psychiatric Unit at [facility] in [place]. I have an order to transfer when stable. I spoke with Ivy at [facility] and she states she had recently been at [facility] at [facility]. I called the [facility]mit transfer team and Adalberto states to call back when patient is medically stable to be transferred. CM will continue to follow and assist with discharge planning/needs. DCP- Discharge Planning Updated by [email or web address]: Bel Nguyen on 08/03/19 12:[address] DC PLAN: Return to [facility] - Resident. ANTICIPATED DC NEEDS: Unknown dc needs CM met with patient to complete initial dc planning assessment. CM educated patient on the CM role and verbal consent given by patient to complete assessment. CM verified patient's address, phone number, and emergency contact phone numbers. Patient lives at [facility]. She had many concerns regarding the snf. 1. She wants rehab but they haven't started it at this time. 2. They are not providing her with oxygen at HS. She reports she wears 5 liters @hs. 3. She reports APS sent her to the snf after she got evicted from her apartment. 4. They have not stared giving her several of her medications they are working on getting authorization for. CM called the facility and spoke to Ivy - Compensation Adjuster. Addressed her concerns and Ivy stated 1. They were evaluating her for rehab and she started having SI and had to go to Inpatient Psych. Since she has been back she has had abd pain and they have not been able to screen her for rehab. She stated she was not aware of the need for O2 that the patient has not informed them of this info. 3.She was not admitted by AMS she signed herself in from a different Nursing facility. Ivy stated she will address all her concerns when she returns to the facility. At discharge patient plans to return to [facility] where she resides and feels this is a safe discharge. Transportation provider at discharge will be the nursing facility. CM will continue to follow and will assist as needed with dc plans/needs. Bel Nguyen RN, [facility] DCPIA - Discharge Planning Initial Assessment Updated by [email or web address]: Bel Nguyen on 08/03/19 12:55 pm * Is the patient Alert and Oriented? Yes * How many steps to enter\exit or inside your home? none * PCP Dr. Castillo - [facility] > * Pharmacy [facility] * [facility]readmission Environment [facility] * Facility Name [facility] * ADLs Partial Dependent * Partial ADLs (Assistance needed) Ambulation Bathing Medication Management * Equipment Bedside Commode * List name and contact numbers for known caregivers / representatives who currently or will assist patient after discharge: Suleman Pitt - Health Care Proxy/Brother - [phone] * Verbal permission to speak to the caregivers and representatives has been obtained from the patient. Yes * Additional services required to return to the preadmission environment? No * Can the patient safely return to the preadmission environment? Yes Last DP export: 08/05/19 7:36 Patient Name: ARTURO PITT Page [id number] at 1134 All edits/amendments must be made on the electronic document DICTATION DATE: 08/05/191133 PROPERTY UTILIZATION MANAGER: EMILIE 08/05/191133 RPT#: [id number] DC DATE: STATUS: ADM IN [facility] [address] [place] [address] END OF REPORT
--- NOTE | 2019-08-05 11:44 | CN ---
PATIENT NAME:ARTURO HENDRICKS MEDICAL RECORD: [id number] : 64 LOCATION:D.MS [place] ADMIT DATE: 08/03/19 ACCOUNT: [id number] CONSULTING PHYSICIAN: SUMA ISRAEL MD REFERRING PHYSICIAN: ABRAHAM CASTILLO MD DATE OF CONSULTATION: 08/03/2019 IDENTIFYING DATA: The patient is 59 years old and she is admitted to the hospital on a voluntary basis. CHIEF COMPLAINT: Abdominal pain. HISTORY OF PRESENT ILLNESS: The patient had an ileus. She has had surgery. She lives in a local prison and is there for rehabilitative services. She has a long history of mental illness and has been quite disorganized. She has made statements about wanting to hurt herself and then retracted them. She is having a great deal of mood lability. She has a longitudinal history consistent with a mood disorder and a cluster B personality disorder. She has had several rounds of electroconvulsive therapy, the most recent being 2 weeks ago. MENTAL STATUS EXAMINATION: The patient is awake, alert and oriented to person, place and somewhat to time and situation. Her mood is anxious. Her affect is labile. Thought processes are disorganized with tangential thinking. She is concrete to abstraction and has impairment of her short-term memory and probable impairment of her long-term memory. She denies active thoughts of wanting to harm herself or others at this moment, but it takes a great deal of questioning to get her to say that and I am not convinced at all. For example, she said that when asked about wanting to hurt herself. She said that she might have to if she does not get relief of the headache she is currently having and a few minutes later then told me that her head was no longer hurting. ASSESSMENT: 1. Schizoaffective disorder, bipolar type. 2. Cluster B personality a personality disorder. PLAN: The patient lacks capacity at this time. She should not be allowed to leave the hospital against medical advice. I would like to treat her with psychoactive medications but cannot do so until her nasogastric tube has been removed. She does require inpatient psychiatric care once medically cleared. She prefers to go to the [facility] where she has most recently been and received a course of ECT treatment 2 weeks ago. TRANSINT:[id number] Voice Confirmation ID: [id number] DOCUMENT ID: [id number] SUMA ISRAEL MD at 1144 CC: [id number] DICTATION DATE: 08/04/19 170 GI TECHNICIAN: 08/05/19 0243 ADM IN [facility] [address] [place] [id number]
--- NOTE | 2019-08-05 16:27 | NUR ---
SITTER AT BEDSIDE. PT TEARFUL AND STATED, "I AM SO CONFUSED. I DON'T KNOW WHAT TO." ATTEMPTED COPING SKILLS BUT PT REFUSED. PT THEN "DISMISSED ME".
[2019-08-05 17:32] VITALS: BP 124/73
--- NOTE | 2019-08-05 18:37 | NUR ---
RESTING QUIETLY IN BED AT THIS TIME. DENIES NEEDS. ABDOMEN IS VERY DISTENED AND FIRM. WILL MONITOR.
[2019-08-05 20:38] VITALS: BP 116/65
[2019-08-05 23:55] VITALS: BP 109/62
--- NOTE | 2019-08-06 | NUR ---
PT A&O X 4. REQUESTS CUP OF SPRITE. PT GIVEN SMALL CUP OF ICE FILLED HALF WAY WITH SPRITE AND ENCOURAGED TO TAKE SMALL SIPS. PT VERBALIZED UNDERSTANDING. PT PASSED LOOSE BM IN BATHROOM, HAT SETN UNDER YURIDIA FOR BETTER ASSESSMENT, PT INFORMED. WILL CONTINUE TO MONITOR.
[2019-08-06 05:54] VITALS: BP 107/61
--- NOTE | 2019-08-06 06:33 | NUR ---
I have reviewed this patient and I concur with the Shift Assessment completed by the Licensed Practical Nurse today this shift.
--- NOTE | 2019-08-06 07:54 | NUR ---
ROUSES TO VERBAL AND TACTILE STIMULATION. ORIENTED X3. NO C/O AT THIS TIME. LUNGS ARE CLEAR BIALTERALLY, NO COUGH NOTED. SKIN IS INTACT WITHOUT REDNESS. ABDOMEN IS GROSSLY SWOLLEN AND FIRM. BM REPORTED IN PM AND BS POSITIVE. WILL MONITOR. NO IV ACCESS AT THIS TIME. DENIES NEEDS.
--- NOTE | 2019-08-06 08:42 | MORECARE ---
CASE MANAGEMENT DISCHARGE SUMMARY PATIENT: ARTURO PITT UNIT: [id number] ADM DATE: 08/03/19 AGE: 59 : 64 SEX: F ROOM/BED: D.2232 AUTHOR: DIOR,DOC PHYSICIAN: REFERRING PHYSICIAN: ABRAHAM CASTILLO MD DATE OF SERVICE: 08/06/19 Discharge Plan Patient Name: ARTURO PITT Facility: [facility]:[place] : 1960 Planned Disposition: SNF w Planned Readmission Anticipated Discharge Date: Discharge Date: Expected LOS: Initial Reviewer: [email or web address] Initial Review Date: 08/03/2019 Generated: 08/06/19 9:42 am Comments DCP- Discharge Planning Updated by [email or web address]: Ailyn Vasquez on 08/06/19 7:[address] [facility] in [place] have denied admission due to "not medically stable". CM will continue to follow and assist with discharge planning/needs. DCP- Discharge Planning Updated by [id number]: Ailyn Vasquez on 08/05/19 10:[address] Anurag for the Transfer Center states that [facility] and [facility] inpatient rehab units have denied admission. [place] states she can have [facility] outpatient [facility] care and [facility] states a aidee psych unit is more appropriate (per Anurag). I spoke with Andi, and he wants to continue to find an inpatient psychiatric facility for admission, and I have called Anurag and informed. CM will continue to follow and assist with discharge planning/needs. DCP- Discharge Planning Updated by [email or web address]: Ailyn Vasquez on 08/05/19 7:[address] Jad Viera would like patient transferred to inpatient psychiatric facility at [facility], she has been there recently. Patient also is asking to go to [facility]. She refuses KUB this morning. I called Anurag at [facility] Transfer [facility] and informed after calling assistant warehouse manager, Jayla. Clinical faxed to Transfer Center. telehealth coordinator (Fanta) and primary care nurse (Karin) informed. CM will continue to follow and assist with discharge planning/needs. DCP- Discharge Planning Updated by [id number]: Ailyn Vasquez on 08/04/19 1:[address] Patient is stating she wants to go to Inpatient Psychiatric Unit at [facility] in [place]. I have an order to transfer when stable. I spoke with Ivy at [facility] and she states she had recently been at [facility] at [facility]. I called the [facility]mit transfer team and Adalberto states to call back when patient is medically stable to be transferred. CM will continue to follow and assist with discharge planning/needs. DCP- Discharge Planning Updated by [email or web address]: Ble Nguyen on 08/03/19 12:[address] DC PLAN: Return to [facility] - Resident. ANTICIPATED DC NEEDS: Unknown dc needs CM met with patient to complete initial dc planning assessment. CM educated patient on the CM role and verbal consent given by patient to complete assessment. CM verified patient's address, phone number, and emergency contact phone numbers. Patient lives at [facility]. She had many concerns regarding the care home. 1. She wants rehab but they haven't started it at this time. 2. They are not providing her with oxygen at HS. She reports she wears 5 liters @hs. 3. She reports APS sent her to the care home after she got evicted from her apartment. 4. They have not stared giving her several of her medications they are working on getting authorization for. CM called the facility and spoke to Ivy - Head Piece Assembler. Addressed her concerns and Ivy stated 1. They were evaluating her for rehab and she started having SI and had to go to Inpatient Psych. Since she has been back she has had abd pain and they have not been able to screen her for rehab. She stated she was not aware of the need for O2 that the patient has not informed them of this info. 3.She was not admitted by AMS she signed herself in from a different Nursing facility. Ivy stated she will address all her concerns when she returns to the facility. At discharge patient plans to return to [facility] where she resides and feels this is a safe discharge. Transportation provider at discharge will be the nursing facility. CM will continue to follow and will assist as needed with dc plans/needs. Bel Nguyen RN, [facility] DCPIA - Discharge Planning Initial Assessment Updated by [email or web address]: Bel Nguyen on 08/03/19 12:55 pm * Is the patient Alert and Oriented? Yes * How many steps to enter\\exit or inside your home? none * PCP [facility] > * Pharmacy [facility] * Preadmission Environment [facility] * Facility Name [facility] * ADLs Partial Dependent * Partial ADLs (Assistance needed) Ambulation Bathing Medication Management * Equipment Bedside Commode * List name and contact numbers for known caregivers / representatives who currently or will assist patient after discharge: Suleman Pitt - Health Care Proxy/Brother - [phone] * Verbal permission to speak to the caregivers and representatives has been obtained from the patient. Yes * Additional services required to return to the preadmission environment? No * Can the patient safely return to the preadmission environment? Yes Last DP export: 08/05/19 10:34 Patient Name: ARTURO PITT Page [id number] at 0842 All edits/amendments must be made on the electronic document DICTATION DATE: 08/06/19841 STORAGE BRINE WORKER: EMILIE 08/06/19841 RPT#: [id number] DC DATE: STATUS: ADM IN [facility] [address] [place] [address] END OF REPORT
[2019-08-06 09:47] VITALS: BP 119/71
--- NOTE | 2019-08-06 14:47 | MORECARE ---
CASE MANAGEMENT DISCHARGE SUMMARY PATIENT: ARTURO PITT UNIT: [id number] ADM DATE: 08/03/19 AGE: 59 : 64 SEX: F ROOM/BED: D.2232 AUTHOR: DIOR,DOC PHYSICIAN: REFERRING PHYSICIAN: ABRAHAM CASTILLO MD DATE OF SERVICE: 08/06/19 Discharge Plan Patient Name: ARTURO PITT Facility: [facility]:[place] : 1960 Planned Disposition: SNF w Planned Readmission Anticipated Discharge Date: Discharge Date: Expected LOS: Initial Reviewer: [email or web address] Initial Review Date: 08/03/2019 Generated: 08/06/19 3:46 pm Comments DCP- Discharge Planning Updated by [email or web address]: Ailyn Vasquez on 08/06/19 1:[address] CM called and spoke to Tasha at [facility] to see if they would accept the patient back. Tasha states as long as the patient is able to tolerate a diet, they would accept her back. I informed patient's nurse, Karin. CM will continue to follow and assist with discharge planning/needs. DCP- Discharge Planning Updated by [email or web address]: Ailyn Vasquez on 08/06/19 7:[address] [facility] in [place] have denied admission due to "not medically stable". CM will continue to follow and assist with discharge planning/needs. DCP- Discharge Planning Updated by [id number]: Ailyn Vasquez on 08/05/19 10:[address] Anurag for the [facility] states that [facility] and [facility] inpatient rehab units have denied admission. [place] states she can have continuous churn buttermaker outpatient psychiatric care and [facility] states a aidee psych unit is more appropriate (per Anurag). I spoke with Andi, and he wants to continue to find an inpatient psychiatric facility for admission, and I have called Anurag and informed. CM will continue to follow and assist with discharge planning/needs. DCP- Discharge Planning Updated by [email or web address]: Ailyn Vasquez on 08/05/19 7:[address] Jad Viera would like patient transferred to inpatient psychiatric facility at [facility], she has been there recently. Patient also is asking to go to [facility]. She refuses KUB this morning. I called Anurag at [facility] and informed after calling household coordinator, Jayla. Clinical faxed to [facility]. title coordinator (Fanta) and primary care nurse (Karin) informed. CM will continue to follow and assist with discharge planning/needs. DCP- Discharge Planning Updated by [email or web address]: Ailyn Vasquez on 08/04/19 1:[address] Patient is stating she wants to go to Inpatient Psychiatric Unit at [facility] in [place]. I have an order to transfer when stable. I spoke with Ivy at [facility] and she states she had recently been at [facility] at [facility]. I called the [facility] Admit transfer team and Adalberto states to call back when patient is medically stable to be transferred. CM will continue to follow and assist with discharge planning/needs. DCP- Discharge Planning Updated by [email or web address]: Bel Nguyen on 08/03/19 12:[address] DC PLAN: Return to [facility] - Resident. ANTICIPATED DC NEEDS: Unknown dc needs CM met with patient to complete initial dc planning assessment. CM educated patient on the CM role and verbal consent given by patient to complete assessment. CM verified patient's address, phone number, and emergency contact phone numbers. Patient lives at [facility]. She had many concerns regarding the [facility]. 1. She wants rehab but they haven't started it at this time. 2. They are not providing her with oxygen at [facility]. She reports she wears 5 liters @[facility]. 3. She reports APS sent her to the [facility] after she got evicted from her apartment. 4. They have not stared giving her several of her medications they are working on getting authorization for. CM called the facility and spoke to Ivy - Premium Note Interest Calculator Clerk. Addressed her concerns and Ivy stated 1. They were evaluating her for rehab and she started having SI and had to go to Inpatient Psych. Since she has been back she has had abd pain and they have not been able to screen her for rehab. She stated she was not aware of the need for O2 that the patient has not informed them of this info. 3.She was not admitted by AMS she signed herself in from a different Nursing facility. Ivy stated she will address all her concerns when she returns to the facility. At discharge patient plans to return to [facility] where she resides and feels this is a safe discharge. Transportation provider at discharge will be the nursing facility. CM will continue to follow and will assist as needed with dc plans/needs. Bel Nguyen RN, [facility] DCPIA - Discharge Planning Initial Assessment Updated by [email or web address]: Bel Nguyen on 08/03/19 12:55 pm * Is the patient Alert and Oriented? Yes * How many steps to enter\\exit or inside your home? none * PCP Dr. Castillo - [facility] MD> * Pharmacy [facility] * Preadmission Environment Intermediate [facility] * Facility Name [facility] * ADLs Partial Dependent * Partial ADLs (Assistance needed) Ambulation Bathing Medication Management * Equipment Bedside Commode * List name and contact numbers for known caregivers / representatives who currently or will assist patient after discharge: Suleman Pitt - Health Care Proxy/Brother - [phone] * Verbal permission to speak to the caregivers and representatives has been obtained from the patient. Yes * Additional services required to return to the preadmission environment? No * Can the patient safely return to the preadmission environment? Yes Last DP export: 08/06/19 7:42 Patient Name: ARTURO PITT Page [id number] at 1447 All edits/amendments must be made on the electronic document DICTATION DATE: 08/06/191445 DATA COMMUNICATIONS ENGINEER: EMILIE 08/06/191445 RPT#: [id number] DC DATE: STATUS: ADM IN [facility] [address] [place] [address] END OF REPORT
--- NOTE | 2019-08-06 14:56 | MORECARE ---
CASE MANAGEMENT DISCHARGE SUMMARY PATIENT: ARTURO PITT UNIT: [id number] ADM DATE: 08/03/19 AGE: 59 : 64 SEX: F ROOM/BED: D.2232 AUTHOR: DOIR,DOC PHYSICIAN: REFERRING PHYSICIAN: ABRAHAM CASTILLO MD DATE OF SERVICE: 08/06/19 Discharge Plan Patient Name: ARTURO PITT Facility: [facility]:[place] : 1960 Planned Disposition: SNF w Planned Readmission Anticipated Discharge Date: Discharge Date: Expected LOS: Initial Reviewer: [email or web address] Initial Review Date: 08/03/2019 Generated: 08/06/19 3:56 pm Comments DCP- Discharge Planning Updated by [id number]: Ailyn Vasquez on 08/06/19 1:[address] CM called and spoke to Tasha at [facility] to see if they would accept the patient back. Tasha states as long as the patient is able to tolerate a diet, they would accept her back. I informed patient's nurse, Karin. CM will continue to follow and assist with discharge planning/needs. DCP- Discharge Planning Updated by [email or web address]: Ailyn Vasquez on 08/06/19 7:[address] [facility] in [place] have denied admission due to "not medically stable". CM will continue to follow and assist with discharge planning/needs. DCP- Discharge Planning Updated by [id number]: Ailyn Vasquez on 08/05/19 10:[address] Anurag for the Transfer [facility] states that [facility] and [facility] inpatient rehab units have denied admission. [place] states she can have termite treater helper outpatient psychiatric care and [facility] states a aidee psych unit is more appropriate (per Anurag). I spoke with Andi, and he wants to continue to find an inpatient psychiatric facility for admission, and I have called Anurag and informed. CM will continue to follow and assist with discharge planning/needs. DCP- Discharge Planning Updated by [id number]: Ailyn Vasquez on 08/05/19 7:[address] Jad Viera would like patient transferred to inpatient psychiatric facility at [facility], she has been there recently. Patient also is asking to go to [facility]. She refuses KUB this morning. I called Anurag at [facility] and informed after calling warehouse and receiving supervisor, Jayla. Clinical faxed to Transfer [facility]. physical therapy coordinator (Fanta) and primary care nurse (Karin) informed. CM will continue to follow and assist with discharge planning/needs. DCP- Discharge Planning Updated by [id number]: Ailyn Vasquez on 08/04/19 1:[address] Patient is stating she wants to go to Inpatient Psychiatric Unit at [facility] in [place]. I have an order to transfer when stable. I spoke with Ivy at [facility] and she states she had recently been at [facility]. I called the [facility] Admit transfer team and Adalberto states to call back when patient is medically stable to be transferred. CM will continue to follow and assist with discharge planning/needs. DCP- Discharge Planning Updated by [id number]: Bel Nguyen on 08/03/19 12:[address] DC PLAN: Return to [facility] - Resident. ANTICIPATED DC NEEDS: Unknown dc needs CM met with patient to complete initial dc planning assessment. CM educated patient on the CM role and verbal consent given by patient to complete assessment. CM verified patient's address, phone number, and emergency contact phone numbers. Patient lives at [facility]. She had many concerns regarding the alf. 1. She wants rehab but they haven't started it at this time. 2. They are not providing her with oxygen at [facility]. She reports she wears 5 liters @[facility]. 3. She reports APS sent her to the alf after she got evicted from her apartment. 4. They have not stared giving her several of her medications they are working on getting authorization for. CM called the facility and spoke to Ivy - Spinning Mule Operator. Addressed her concerns and Ivy stated 1. They were evaluating her for rehab and she started having SI and had to go to Inpatient Psych. Since she has been back she has had abd pain and they have not been able to screen her for rehab. She stated she was not aware of the need for O2 that the patient has not informed them of this info. 3.She was not admitted by AMS she signed herself in from a different Nursing facility. Ivy stated she will address all her concerns when she returns to the facility. At discharge patient plans to return to [facility] where she resides and feels this is a safe discharge. Transportation provider at discharge will be the nursing facility. CM will continue to follow and will assist as needed with dc plans/needs. Bel Nguyen RN, [facility] DCPIA - Discharge Planning Initial Assessment Updated by [id number]: Bel Nguyen on 08/03/19 12:55 pm * Is the patient Alert and Oriented? Yes * How many steps to enter\\exit or inside your home? none * PCP Dr. Castillo - [facility] MD> * Pharmacy [facility] * Preadmission Environment [facility] * Facility Name [facility] * ADLs Partial Dependent * Partial ADLs (Assistance needed) Ambulation Bathing Medication Management * Equipment Bedside Commode * List name and contact numbers for known caregivers / representatives who currently or will assist patient after discharge: Suleman Pitt - Health Care Proxy/Brother - [phone] * Verbal permission to speak to the caregivers and representatives has been obtained from the patient. Yes * Additional services required to return to the preadmission environment? No * Can the patient safely return to the preadmission environment? Yes External Providers External Provider: [facility] Next Contact Date: Service Request Date: Service Type: Resolution: Reviewer: Comments: Last DP export: 08/06/19 1:47 Patient Name: ARTURO PITT Page [phone] at 1456 All edits/amendments must be made on the electronic document DICTATION DATE: 08/06/191455 CRYPTOGRAPHER: EMILIE 08/06/191455 RPT#: [id number] DC DATE: STATUS: ADM IN [facility] [address] [place] [address] END OF REPORT
[2019-08-06 17:54] VITALS: BP 135/80
--- NOTE | 2019-08-06 19:15 | NUR ---
PATIENT ALERT AND ORIENTED WITH ONE ON ONE PRECAUTIONS ENABLED WITH PCT. PATIENT PLEASENT IN CONVERSATION. ABDOMEN PRESENTS LARGELY DISTENDED UPON ASSESSMENT WITH ACTIVE BOWEL SOUNDS IN EACH QUADRANT. PATIENT ASKS FOR SPRITE AND WATER. INSTRUCTED PATIENT OF STRICT NPO STATUS. PATIENT STATES UNDERSTANDING AFTER TEACHING. PATIENT REPORTS THAT SHE HAS YEAST INFECTION. PROVIDED COOLED VASELINE FOR COMFORT AT THIS TIME. DENIES THAT THIS NURSE CALL THE DOCTOR, STATES "IT'S REALLY NOT THAT BAD JUST PLEASE MAKE A NOTE." PATIENT ALSO ASKS ABOUT GABAPENTIN IN REGARDS TO NEUROPATHY PAIN. STATES THAT SHE TAKES 1200 MG AND WOULD LIKE IT RESTARTED. WELL SERTRALINE. STATES CURRENT HEADACHE IS 1 ON PAIN SCALE. PROVIDED WARM PACK FOR NECK UPON REQUEST. DENIES FURTHER NEEDS AT THIS TIME. CALL LIGHT IN REACH. ONE ON ONE PRECUATIONS REMAIN IN PLACE AT THIS TIME. CPOC.
[2019-08-06 20:46] VITALS: BP 139/72
--- NOTE | 2019-08-07 00:16 | NUR ---
RESTING WITH HOB ELEVATED TO 45 DEGREE ANGLE. ONE ON ONE PRECAUTIONS REMAIN IN PLACE. NO DISTRESS NOTED AT THIS TIME. CLOSE TO NURSES STATION FOR MONITORING. CPOC.
[2019-08-07 00:19] VITALS: BP 109/71
--- NOTE | 2019-08-07 03:18 | NUR ---
I have reviewed this patient and I concur with the Shift Assessment completed by the Licensed Practical Nurse today this shift.
[2019-08-07 04:54] VITALS: BP 119/70
[2019-08-07 05:51] LABS: BASOPHILS 0.4 % (0-2); EOSINOPHILS 5.6 % (0-7); HEMATOCRIT 35.3 % (36.0-48.0); IMMATURE GRANULOCYTES 0.2 % (0-5); LYMPHOCYTES 39.5 % (15-50); MCH 26.3 pg (26.0-34.0); MCHC 31.2 g/dL (31.0-37.0); MCV 84.2 fL (80.0-100.0); MEAN PLATELET VOLUME 9.2 fL (7.4-10.4); MONOCYTES 12.8 % (2-11); NEUTROPHILS 41.5 % (40-80); PLATELET COUNT 269 10x3/uL (130-400); RBC 4.19 10x6/uL (4.00-5.40); RDW 15.9 % (11.5-14.5)
[2019-08-07 06:05] LABS: CALC OSMOLALITY 275 mosm/kg (275-300); CALCIUM 8.8 mg/dL (8.5-10.1); CARBON DIOXIDE 25.1 mmol/L (21.0-32.0); CHLORIDE - SERUM 105 mmol/L (98-107); CREATININE - SERUM 0.6 mg/dL (0.6-1.3); GLUCOSE 95 mg/dL (74-106); SODIUM 140 mmol/L (136-145); UREA NITROGEN 4 mg/dL (7-18); WBC 5.3 10x3/uL (4.8-10.8); eGFR NON AFRICAN AMERICAN > 90 mL/min (90-120)
[2019-08-07 06:06] LABS: POTASSIUM - SERUM 3.5 mmol/L (3.5-5.1)
[2019-08-07 08:21] VITALS: BP 119/72
--- NOTE | 2019-08-07 09:51 | NUR ---
PT ALERT X 4. BREATH SOUNDS CLEAR BILAT. ABDOMENT DISTENDED AND FIRM. PT REPORTS 1 BM OVERNIGHT LAST NIGHT. NO IV ACCESS AT THIS TIME. PT REPORTING PAIN OF 7/10, MEDICATED PER ORDERS, WILL MONITOR. BED LOW, CALL LIGHT IN REACH. NO OTHER NEEDS AT THIS TIME.
[2019-08-07 12:47] VITALS: BP 123/92
[2019-08-07 17:32] VITALS: BP 120/85
--- NOTE | 2019-08-07 19:00 | NUR ---
PATIENT ALERT AND ORIENTED X 4. ONE ON ONE PRECAUTIONS IN PLACE. PATIENT ABDOMEN LARGELY DISTENDED AND FIRM TO PALPATION. PATIENT STATES IT IS NONTENDER UPON ASSESSMENT. WHEN AUSCULTATING BOWEL SOUNDS, PATIENT HAD LARGE, WAVE LIKE MOTION IN ABDOMEN THAT PRESENTED WITH LARGE GARBLE SOUNDS. PATIENT STATED "IT'S MOVING IN THERE." REPORTS DIARRHEA/LOOSE TYPE BOWEL MOVEMENTS TODAY. PATIENT HAS HAD SEVERAL CUPS OF CHICKEN BROTH AND WATER THROUGH OUT DAY NOW THAT SHE IS ON A CLEAR LIQUID DIET. INSTRUCTED PATIENT TO TAKE IT SLOW AND NOT TO OVER DO THE CHICKEN BROTH. PATIENT VERBALIZES UNDERSTANDING. PATIENT HAS NO IV AT THIS TIME. DENIES PAIN AT THIS TIME. CALL LIGHT IN REACH. RN AT BEDSIDE. CPOC.
--- NOTE | 2019-08-07 20:19 | NUR ---
AMBULATED UNIT WITH NURSE
[2019-08-07 20:22] VITALS: BP 144/85
--- NOTE | 2019-08-07 20:30 | NUR ---
SPEAKING WITH PATIENT AND SHE MAKES SEVERAL COMMENTS SUCH "I WISH I HAD A NEW MIND. I WISH I HAD A NEW BODY." SHE ALSO STATES THINGS LIKE "I SHOULD TRY TO CALM MY HEAD DOWN BUT IT DOESN'T WORK. I SHOULD LET GO AND LET GOD." SHE ALSO SAID "I NEED A PSYCHIATRIC VACATION."
[2019-08-08 00:03] VITALS: BP 102/48
--- NOTE | 2019-08-08 00:57 | NUR ---
I have reviewed this patient and I concur with the Shift Assessment completed by the Licensed Practical Nurse today this shift.
[2019-08-08 04:39] VITALS: BP 128/56
--- NOTE | 2019-08-08 06:00 | NUR ---
PATIENT REFUSED BATH.
[2019-08-08 06:56] LABS: BASOPHILS 0.3 % (0-2); EOSINOPHILS 3.8 % (0-7); HEMATOCRIT 35.6 % (36.0-48.0); HEMOGLOBIN 11.1 g/dL (12-16); IMMATURE GRANULOCYTES 0.2 % (0-5); LYMPHOCYTES 30.8 % (15-50); MCH 26.1 pg (26.0-34.0); MCHC 31.2 g/dL (31.0-37.0); MCV 83.6 fL (80.0-100.0); MEAN PLATELET VOLUME 9.5 fL (7.4-10.4); MONOCYTES 9.9 % (2-11); PLATELET COUNT 284 10x3/uL (130-400); RBC 4.26 10x6/uL (4.00-5.40); WBC 6.1 10x3/uL (4.8-10.8)
[2019-08-08 07:33] LABS: CALC OSMOLALITY 275 mosm/kg (275-300); CALCIUM 8.6 mg/dL (8.5-10.1); CARBON DIOXIDE 25.6 mmol/L (21.0-32.0); CHLORIDE - SERUM 106 mmol/L (98-107); CREATININE - SERUM 0.6 mg/dL (0.6-1.3); GLUCOSE 92 mg/dL (74-106); POTASSIUM - SERUM 3.9 mmol/L (3.5-5.1); SODIUM 140 mmol/L (136-145); UREA NITROGEN 4 mg/dL (7-18); eGFR NON AFRICAN AMERICAN > 90 mL/min (90-120)
[2019-08-08 08:49] VITALS: BP 115/85
--- NOTE | 2019-08-08 09:42 | NUR ---
PT BOWEL SOUNDS ARE SEVERELY HYPOACTIVE AND ABDOMEN IS MORE DISTENDED THIS MORNING. ADVISED PT TO REFRAIN FROM ANY ORAL INTAKE DUE TO CHANGE IN CONDITION. NOTIFIED SIXTO NEWTON APRN OF CHANGES IN CONDITION. HE ORDERED NPO DIET AND KUB. I INFORMED PT OF CONFIRMATION OF NEW DIET ORDER AND SHE REFUSED TO GIVE UP THE DRINK SHE WAS HOLDING AND BECAME AGGITATED. SHE STATED "SIXTO IS FIRED. I WILL ONLY SEE DR. SORIANO OR DR CASTILLO." SHE REQUESTED TO BE TRANSFERRED TO [place], WHICH IS WHERE HER GI DOCTOR IS LOCATED AND ALSO TOLD THE XRAY WATCH AND CLOCK MAKER AND REPAIRER "NO MORE XRAYS". I CALLED SIXTO NEWTON APRN OF ALL OF PT REQUESTS.
--- NOTE | 2019-08-08 10:16 | NUR ---
SITTER REPORTING THAT PT HAS FILLED HER 20 OZ CUP WITH WATER 2 TIMES SINCE DISCUSSION OF NEEDING TO REFRAIN FROM ORAL INTAKE. SHE ALSO JUST FILLED ANOTHER CUP WITH ICE CHIPS. PT IS REQUESTING THAT SITTER FROM LAST NIGHT NOT BE ASSIGNED TO HER CARE AGAIN.
[2019-08-08 13:43] VITALS: BP 120/83
--- NOTE | 2019-08-08 14:30 | NUR ---
PT REQUESTING A DRINK, REMINDED SHE CANNOT HAVE ANYTHING TO DRINK AT THIS TIME. PT STATES "SO YOU WOULD RATHER ME KILL MYSELF THAN HAVE ANYTHING TO DRINK"? I TOLD HER NO BUT THAT IS WAS NOT A GOOD IDEA FOR HER TO KEEP HAVING INTAKE AND NO BOWEL MOVEMENT. PT INSISTS THAT SHE HAS TO HAVE BROTH TO HAVE A BOWEL MOVEMENT.
--- NOTE | 2019-08-08 15:51 | NUR ---
PT REQUESTED 2 JOSE ANTONIO DRINKS FROM ANOTHER RN ON THE FLOOR, WHICH WAS RELAYED TO ME. I REMINDED PT SHE COULD NOT HAVE ANY JOSE ANTONIO. SHE STATED "SO JUST COFFEE AND WATER". AT THIS TIME I REMINDED THE PT THAT DOCTOR'S ORDERS STATED SHE WAS TO HAVE NOTHING TO EAT OR DRINK. SHE SAID THAT WOULD NOT WORK AND SHE WOULD GET IT HERSELF. PT IS BEGINNING TO BREATH MORE SHALLOW. WILL CONTINUE TO REMIND PT OF NPO STATUS AND MONITOR.
[2019-08-08 16:16] VITALS: BP 108/82
--- NOTE | 2019-08-08 17:01 | NUR ---
PT STATING THAT SHE WANTS TO GET THE XRAY DONE NOW. NOTIFIED RADIOLOGY THAT PT WAS READY FOR XRAY SHE PREVIOUSLY REFUSED
--- NOTE | 2019-08-08 18:06 | NUR ---
PT CONSUMED 2 MORE 20 OZ CUPS OF ICE
--- NOTE | 2019-08-08 18:06 | NUR ---
PT CONSUMED 2 MORE 20 OZ CUPS OF ICE
[2019-08-08 20:00] VITALS: BP 147/91
--- NOTE | 2019-08-08 20:00 | NUR ---
SITTING UP IN CHAIR AT BEDSIDE, INFORMED BY YARELI DAY SHIFT RN THAT DR HAD ORDERED NG TUBE BE REPLACED DUE TO ABD DISTENDED AND HYPOACTIVE BOWEL SOUNDS, PT REFUSED SAYING NO IM NOT GOING TO DO THAT I WANT TO GO TO [place] TOMORROW, SEE SHIFT ASSESSMENT, CALL LIGHT IN REACH, SITTER AT BEDSIDE
[2019-08-09 04:00] VITALS: BP 115/70
--- NOTE | 2019-08-09 04:49 | NUR ---
WHEN PERFORMING THE SUICIDE RESCREEN ASSESSMENT SHE REFUSED TO ANSWER MY QUESTIONS. JUST STATED "I DONT HAVE MY THOUGHTS, IM . I HAVE NO PRIVACY OF THOUGHTS. IF YOU WERE IN THIS MUCH PAIN YOU WOULD WANT TO TOO. I HAVE NO WAY OF KILLING MYSELF, BUT YES I DO HAVE THOUGHTS OF KILLING MYSELF." DIFFICULT TO REDIRECT AND REFUSES TO CLARIFY MEANING. WILL CONTINUE TO MONITOR.
--- NOTE | 2019-08-09 07:15 | NUR ---
REC'D IN BED AWAKE AND ALERT. RESP EVEN AND UNLABORED WITH NO DISTRESS NOTED. CAN EXPRESS NEEDS AND WANTS. NO C/O NOTED OR VOICED. ABD REMAIN DISTENDED WITH HYPOACTIVE BS. ASSESSMENT COMPLETED. C/L IM REACH AT BEDSIDE.
--- NOTE | 2019-08-09 07:15 | NUR ---
REC'D LYING SUPINE IN BED AWAKE AND ALERT. RESP EVEN AND UNLABORED WITH NO DISTRESS NOTED. CAN EXPRESS SOME NEED AND WANTS. NO C/O NOTED OR VOICED. PT HAS NO IV ACCESS AT THIS TIME. SITTER AND C/L IN REACH AT BEDSIDE.
--- NOTE | 2019-08-09 07:49 | NUR ---
PT REFUSED TO DO XRAY ON THIS MORNING. THIS NURSE WILL NOTIFY MD OF HER REFUSAL. SITTER AND C/L IN REACH AT BEDSIDE.
[2019-08-09 08:01] VITALS: BP 100/58
--- NOTE | 2019-08-09 10:04 | MORECARE ---
CASE MANAGEMENT DISCHARGE SUMMARY PATIENT: ARTURO PITT UNIT: [id number] ADM DATE: 08/03/19 AGE: 59 : 64 SEX: F ROOM/BED: D.2232 AUTHOR: DIOR,DOC PHYSICIAN: REFERRING PHYSICIAN: ABRAHAM CASTILLO MD DATE OF SERVICE: 08/09/19 Discharge Plan Patient Name: ARTURO PITT Facility: [facility]:[place] : 1960 Planned Disposition: SNF w Planned Readmission Anticipated Discharge Date: Discharge Date: Expected LOS: Initial Reviewer: [email or web address] Initial Review Date: 08/03/2019 Generated: 08/09/19 11:04 am Comments DCP- Discharge Planning Updated by [email or web address]: Ailyn Vasquez on 08/09/19 9:[address] CM was called to the room by the patient and she informed me that she saw Dr. Le this morning and told Dr. Le that she was wanting to be discharged back to [facility]. She states she has already spoken to the DON there (Felicitas). She states Dr. Le told her that she would need to go AMA if she wanted to leave. She has a sitter at the door and the quality assurance coordinator states their is a hold on her. I read Dr. Ann's note that says she voluntarily came to the hospital but states she SHOULD NOT be allowed to go AMA. I have emailed Vicki Negron Risk management about this. I also asked quality assurance coordinator to call Dr. Le and ask if she would like the patient to be discharged, allowed to go AMA or pursue transfer to Psychiatric facility or to [place]. Patient states Dr. Le had told her she could f/u with her GI doctor in [place]. CM will continue to follow and assist with discharge planning/needs. DCP- Discharge Planning Updated by [id number]: Ailyn Vasquez on 08/06/19 1:[address] CM called and spoke to Tasha at [facility] to see if they would accept the patient back. Tasha states as long as the patient is able to tolerate a diet, they would accept her back. I informed patient's nurse, Karin. CM will continue to follow and assist with discharge planning/needs. DCP- Discharge Planning Updated by [id number]: Ailyn Vasquez on 08/06/19 7:[address] [facility] in [place] have denied admission due to "not medically stable". CM will continue to follow and assist with discharge planning/needs. DCP- Discharge Planning Updated by [id number]: Ailyn Vasquez on 08/05/19 10:[address] Anurag for the Transfer Center states that [facility] and [facility] inpatient rehab units have denied admission. [place] states she can have usp outpatient psychiatric care and [facility] states a aidee psych unit is more appropriate (per Anurag). I spoke with Andi, and he wants to continue to find an inpatient psychiatric facility for admission, and I have called Anurag and informed. CM will continue to follow and assist with discharge planning/needs. DCP- Discharge Planning Updated by [email or web address]: Ailyn Vasquez on 08/05/19 7:[address] Jad Viera would like patient transferred to inpatient psychiatric facility at [facility], she has been there recently. Patient also is asking to go to [facility]. She refuses KUB this morning. [facility] and informed after calling warehouse order selector, Jayla. Clinical faxed to Transfer Center. customer relations coordinator (Fanta) and primary care nurse (Karin) informed. CM will continue to follow and assist with discharge planning/needs. DCP- Discharge Planning Updated by [id number]: Ailyn Vasquez on 08/04/19 1:[address] Patient is stating she wants to go to Inpatient Psychiatric Unit at [facility] in [place]. I have an order to transfer when stable. I spoke with Ivy at [facility] and she states she had recently been at [facility] at [facility]. I called the [facility] Admit transfer team and Adalberto states to call back when patient is medically stable to be transferred. CM will continue to follow and assist with discharge planning/needs. DCP- Discharge Planning Updated by [email or web address]: Bel Nguyen on 08/03/19 12:[address] DC PLAN: Return to [facility] - Resident. ANTICIPATED DC NEEDS: Unknown dc needs CM met with patient to complete initial dc planning assessment. CM educated patient on the CM role and verbal consent given by patient to complete assessment. CM verified patient's address, phone number, and emergency contact phone numbers. Patient lives at [facility]. She had many concerns regarding the alf. 1. She wants rehab but they haven't started it at this time. 2. They are not providing her with oxygen at HS. She reports she wears 5 liters @hs. 3. She reports APS sent her to the alf after she got evicted from her apartment. 4. They have not stared giving her several of her medications they are working on getting authorization for. CM called the facility and spoke to Ivy - Airplane Captain. Addressed her concerns and Ivy stated 1. They were evaluating her for rehab and she started having SI and had to go to Inpatient Psych. Since she has been back she has had abd pain and they have not been able to screen her for rehab. She stated she was not aware of the need for O2 that the patient has not informed them of this info. 3.She was not admitted by AMS she signed herself in from a different Nursing facility. Ivy stated she will address all her concerns when she returns to the facility. At discharge patient plans to return to [facility] where she resides and feels this is a safe discharge. Transportation provider at discharge will be the nursing facility. CM will continue to follow and will assist as needed with dc plans/needs. Bel Nguyen RN, [facility] DCPIA - Discharge Planning Initial Assessment Updated by [id number]: Bel Nguyen on 08/03/19 12:55 pm * Is the patient Alert and Oriented? Yes * How many steps to enter\\exit or inside your home? none * PCP Dr. Castillo - Longterm > * Pharmacy Long[facility]acy * Preadmission Environment [facility] * Facility Name [facility] * ADLs Partial Dependent * Partial ADLs (Assistance needed) Ambulation Bathing Medication Management * Equipment Bedside Commode * List name and contact numbers for known caregivers / representatives who currently or will assist patient after discharge: Suleman Pitt - Health Care Proxy/Brother - [phone] * Verbal permission to speak to the caregivers and representatives has been obtained from the patient. Yes * Additional services required to return to the preadmission environment? No * Can the patient safely return to the preadmission environment? Yes Last DP export: 08/06/19 1:56 Patient Name: ARTURO PITT Page [id number] at 1004 All edits/amendments must be made on the electronic document DICTATION DATE: 08/09/19 100 MOTOR VEHICLE EXAMINER: EMILIE 08/09/19 100 RPT#: [id number] DC DATE: STATUS: ADM IN [facility] [address] [place] [address] END OF REPORT
[2019-08-09 10:14] LABS: T4 THYROXIN - FREE 1.29 ng/dL (0.76-1.46); THYROID STIMULATING HORMONE 0.62 uIU/mL (0.36-3.74)
--- NOTE | 2019-08-09 11:26 | MORECARE ---
CASE MANAGEMENT DISCHARGE SUMMARY PATIENT: ARTURO PITT UNIT: [id number] ADM DATE: 08/03/19 AGE: 59 : 64 SEX: F ROOM/BED: D.2232 AUTHOR: DIORDOC PHYSICIAN: REFERRING PHYSICIAN: ABRAHAM CASTILLO MD DATE OF SERVICE: 08/09/19 Discharge Plan Patient Name: ARTURO PITT Facility: [facility]:[place] : 1960 Planned Disposition: SNF w Planned Readmission Anticipated Discharge Date: Discharge Date: Expected LOS: Initial Reviewer: [email or web address] Initial Review Date: 08/03/2019 Generated: 08/09/19 12:25 pm Comments DCP- Discharge Planning Updated by [id number]: Ailyn Vasquez on 08/09/19 10:[address] Vicki Negron risk management, would like to see if Dr. Le can discharge to the halfway per patient request. payroll and benefits coordinator has called Jad Viera, he states he will discharge later today. I attempted to call [place] and no one answered on any of the extensions including forest fire equipment operator. I left a message on admissions nurse phone and faxed clinical. CM will continue to follow and assist with discharge planning/needs. DCP- Discharge Planning Updated by [id number]: Ailyn Vasquez on 08/09/19 9:[address] CM was called to the room by the patient and she informed me that she saw Dr. Le this morning and told Dr. Le that she was wanting to be discharged back to [facility]. She states she has already spoken to the DON there (Felicitas). She states Dr. Le told her that she would need to go AMA if she wanted to leave. She has a sitter at the door and the merchandise flow manager states their is a hold on her. I read Dr. Ann's note that says she voluntarily came to the hospital but states she SHOULD NOT be allowed to go AMA. I have emailed Vicki Negron Risk robin about this. I also asked merchandise flow manager to call Dr. Le and ask if she would like the patient to be discharged, allowed to go AMA or pursue transfer to Psychiatric facility or to [place]. Patient states Dr. Le had told her she could f/u with her GI doctor in [place]. CM will continue to follow and assist with discharge planning/needs. DCP- Discharge Planning Updated by [id number]: Ailyn Christina on 08/06/19 1:[address] CM called and spoke to Tasha at [facility] to see if they would accept the patient back. Tasha states as long as the patient is able to tolerate a diet, they would accept her back. I informed patient's nurse, Karin. CM will continue to follow and assist with discharge planning/needs. DCP- Discharge Planning Updated by [email or web address]: Ailyn Christina on 08/06/19 7:[address] [facility] [place] have denied admission due to "not medically stable". CM will continue to follow and assist with discharge planning/needs. DCP- Discharge Planning Updated by [id number]: Ailyn Vasquez on 08/05/19 10:[address] Anurag for the Transfer Center states that [facility] and [facility] inpatient rehab units have denied admission. [place] states she can have weigher production outpatient psychiatric care and [facility] states a aidee psych unit is more appropriate (per Anurag). I spoke with Andi, and he wants to continue to find an inpatient psychiatric facility for admission, and I have called Anurag and informed. CM will continue to follow and assist with discharge planning/needs. DCP- Discharge Planning Updated by [id number]: Ailyn Vasquez on 08/05/19 7:[address] Jad Viera would like patient transferred to inpatient psychiatric facility at [facility], she has been there recently. Patient also is asking to go to [facility]. She refuses KUB this morning. I called Anurag at [facility] and informed after calling housekeeping and laundry team leader, Jayla. Clinical faxed to Transfer Center. payroll and benefits coordinator (Fanta) and primary care nurse (Karin) informed. CM will continue to follow and assist with discharge planning/needs. DCP- Discharge Planning Updated by [id number]: Ailyn Vasquez on 08/04/19 1:[address] Patient is stating she wants to go to Inpatient Psychiatric Unit at [facility] in [place]. I have an order to transfer when stable. I spoke with Ivy at [facility] and she states she had recently been at [facility]. I called the [facility] transfer team and Adalberto states to call back when patient is medically stable to be transferred. CM will continue to follow and assist with discharge planning/needs. DCP- Discharge Planning Updated by [id number]: Bel Nguyen on 08/03/19 12:[address] DC PLAN: Return to [facility] - Resident. ANTICIPATED DC NEEDS: Unknown dc needs CM met with patient to complete initial dc planning assessment. CM educated patient on the CM role and verbal consent given by patient to complete assessment. CM verified patient's address, phone number, and emergency contact phone numbers. Patient lives at [facility]. She had many concerns regarding the halfway. 1. She wants rehab but they haven't started it at this time. 2. They are not providing her with oxygen at [facility]. She reports she wears 5 liters @hs. 3. She reports APS sent her to the halfway after she got evicted from her apartment. 4. They have not stared giving her several of her medications they are working on getting authorization for. CM called the facility and spoke to Ivy - Mechanical Insulator. Addressed her concerns and Ivy stated 1. They were evaluating her for rehab and she started having SI and had to go to Inpatient Psych. Since she has been back she has had abd pain and they have not been able to screen her for rehab. She stated she was not aware of the need for O2 that the patient has not informed them of this info. 3.She was not admitted by [facility] she signed herself in from a different Nursing facility. Ivy stated she will address all her concerns when she returns to the facility. At discharge patient plans to return to [facility] where she resides and feels this is a safe discharge. Transportation provider at discharge will be the nursing facility. CM will continue to follow and will assist as needed with dc plans/needs. Bel Nguyen RN, [facility] DCPIA - Discharge Planning Initial Assessment Updated by [id number]: Bel Nguyen on 08/03/19 12:55 pm * Is the patient Alert and Oriented? Yes * How many steps to enter\\exit or inside your home? none * PCP Dr. Castillo - Halfway > * Pharmacy [facility] * Preadmission Environment Vibrating Screen Operator Halfway * Facility Name [facility] * ADLs Partial Dependent * Partial ADLs (Assistance needed) Ambulation Bathing Medication Management * Equipment Bedside Commode * List name and contact numbers for known caregivers / representatives who currently or will assist patient after discharge: Suleman Pitt - Health Care Proxy/Brother - [phone] * Verbal permission to speak to the caregivers and representatives has been obtained from the patient. Yes * Additional services required to return to the preadmission environment? No * Can the patient safely return to the preadmission environment? Yes Last DP export: 08/09/19 9:04 Patient Name: ARTURO PITT Page [id number] at 1126 All edits/amendments must be made on the electronic document DICTATION DATE: 08/09/191124 FRICTION PAINT MACHINE TENDER: EMILIE 08/09/191124 RPT#: [id number] DC DATE: STATUS: ADM IN [facility] [address] [place] [address] END OF REPORT
--- NOTE | 2019-08-09 12:19 | NUR ---
Nutrition follow-up: Pt remains NPO; NPO x 7 days Labs reviewed Wt: 250# Recommend starting ProcalAmine PPN @ 125 ml/hr due to NPO > 6 days RDN following.
[2019-08-09 12:43] VITALS: BP 114/85
[2019-08-09] MEDS ORDERED: ZOLOFT100 MG PO (12:44)
[2019-08-09] MEDS ORDERED: ATIVAN1 MG PO (12:48)
--- NOTE | 2019-08-09 13:23 | MORECARE ---
CASE MANAGEMENT DISCHARGE SUMMARY PATIENT: ARTURO PITT UNIT: [id number] ADM DATE: 08/03/19 AGE: 59 : 64 SEX: F ROOM/BED: D.2232 AUTHOR: DIORDOC PHYSICIAN: REFERRING PHYSICIAN: ABRAHAM CASTILLO MD DATE OF SERVICE: 08/09/19 Discharge Plan Patient Name: ARTURO PITT Facility: [facility]:[place] : 1960 Planned Disposition: SNF w Planned Readmission Anticipated Discharge Date: Discharge Date: Expected LOS: Initial Reviewer: [email or web address] Initial Review Date: 08/03/2019 Generated: 08/09/19 2:23 pm Comments DCP- Discharge Planning Updated by [email or web address]: Ailyn Vasquez on 08/09/19 12:[address] Patient Name: ARTURO PITT Encounter No: [id number] : 1960 Primary Insurance: MEDICARE A & B Anticipated DC Date: Planned Disposition: SNF w Planned Readmission External Planned Provider: : DCP follow-up note: Patient in agreement with discharge plan. No changes to plan. She is discharging back to her livestock dealer care bed at [facility] per [facility]. [facility] states she will pick her up shortly. DC orders/home med list and MAR faxed to [facility]. CM will continue to follow and assist with discharge planning/needs. Ailyn Vasquez DCP- Discharge Planning Updated by [id number]: Ailyn Vasquez on 08/09/19 10:[address] Vicki Negron, risk management, would like to see if Dr. Le can discharge to the alf per patient request. air traffic coordinator has called Jad Viera, he states he will discharge later today. I attempted to call [place] and no one answered on any of the extensions including piped buttonhole machine operator. I left a message on admissions nurse phone and faxed clinical. CM will continue to follow and assist with discharge planning/needs. DCP- Discharge Planning Updated by [id number]: Ailyn Vasquez on 08/09/19 9:[address] CM was called to the room by the patient and she informed me that she saw Dr. Le this morning and told Dr. Le that she was wanting to be discharged back to [facility]. She states she has already spoken to the DON there (Felicitas). She states Dr. Le told her that she would need to go AMA if she wanted to leave. She has a sitter at the door and the neighborhood coordinator states their is a hold on her. I read Dr. Ann's note that says she voluntarily came to the hospital but states she SHOULD NOT be allowed to go AMA. I have emailed Vicki Negron, Risk management about this. I also asked neighborhood coordinator to call Dr. Le and ask if she would like the patient to be discharged, allowed to go AMA or pursue transfer to Psychiatric facility or to [place]. Patient states Dr. Le had told her she could f/u with her GI doctor in [place]. CM will continue to follow and assist with discharge planning/needs. DCP- Discharge Planning Updated by [id number]: Ailyn Vasquez on 08/06/19 1:[address] CM called and spoke to Tasha at [facility] to see if they would accept the patient back. Tasha states as long as the patient is able to tolerate a diet, they would accept her back. I informed patient's nurse, Karin. CM will continue to follow and assist with discharge planning/needs. DCP- Discharge Planning Updated by [id number]: Ailyn Vasquez on 08/06/19 7:[address] [facility] in [place] have denied admission due to "not medically stable". CM will continue to follow and assist with discharge planning/needs. DCP- Discharge Planning Updated by [id number]: Ailyn Vasquez on 08/05/19 10:[address] Anurag for the Transfer Center states that [facility] and [facility] inpatient rehab units have denied admission. [place] states she can have livestock dealer outpatient psychiatric care [facility] aide[facility] psych unit is more appropriate (per Anurag). I spoke with Andi, and he wants to continue to find an inpatient psychiatric facility for admission, and I have called Anurag and informed. CM will continue to follow and assist with discharge planning/needs. DCP- Discharge Planning Updated by [id number]: Ailyn Vasquez on 08/05/19 7:[address] Jad Viera would like patient transferred to inpatient psychiatric facility at [facility], she has been there recently. Patient also is asking to go to [facility]. She refuses KUB this morning. I called Anurag at [facility] and informed after calling hospital housekeeper, Jayla. Clinical faxed to Transfer Center. air traffic coordinator (Fanta) and primary care nurse (Karin) informed. CM will continue to follow and assist with discharge planning/needs. DCP- Discharge Planning Updated by [id number]: Ailyn Vasquez on 08/04/19 1:[address] Patient is stating she wants to go to Inpatient Psychiatric Unit at [facility] in [place]. I have an order to transfer when stable. I spoke with Ivy at [facility] and she states she had recently been at [facility] at [facility]. I called the [facility] transfer team and Adalberto states to call back when patient is medically stable to be transferred. CM will continue to follow and assist with discharge planning/needs. DCP- Discharge Planning Updated by [id number]: Bel Nguyen on 08/03/19 12:[address] DC PLAN: Return to [facility] - Resident. ANTICIPATED DC NEEDS: Unknown dc needs CM met with patient to complete initial dc planning assessment. CM educated patient on the CM role and verbal consent given by patient to complete assessment. CM verified patient's address, phone number, and emergency contact phone numbers. Patient lives at [facility]. She had many concerns regarding the alf. 1. She wants rehab but they haven't started it at this time. 2. They are not providing her with oxygen at [facility]. She reports she wears 5 liters @hs. 3. She reports APS sent her to the alf after she got evicted from her apartment. 4. They have not stared giving her several of her medications they are working on getting authorization for. CM called the facility and spoke to Ivy - Singing Telegram Performer. Addressed her concerns and Ivy stated 1. They were evaluating her for rehab and she started having SI and had to go to Inpatient Psych. Since she has been back she has had abd pain and they have not been able to screen her for rehab. She stated she was not aware of the need for O2 that the patient has not informed them of this info. 3.She was not admitted by [facility] she signed herself in from a different Nursing facility. Ivy stated she will address all her concerns when she returns to the facility. At discharge patient plans to return to [facility] where she resides and feels this is a safe discharge. Transportation provider at discharge will be the nursing facility. CM will continue to follow and will assist as needed with dc plans/needs. Bel Nguyen RN, [facility] DCPIA - Discharge Planning Initial Assessment Updated by [id number]: Bel Nguyen on 08/03/19 12:55 pm * Is the patient Alert and Oriented? Yes * How many steps to enter\\exit or inside your home? none * PCP Dr. Castillo - [facility] > * Pharmacy [facility] * Preadmission Environment [facility] * Facility Name [facility] * ADLs Partial Dependent * Partial ADLs (Assistance needed) Ambulation Bathing Medication Management * Equipment Bedside Commode * List name and contact numbers for known caregivers / representatives who currently or will assist patient after discharge: Sulemanyamileth Pitt - Health Care Proxy/Brother - [phone] * Verbal permission to speak to the caregivers and representatives has been obtained from the patient. Yes * Additional services required to return to the preadmission environment? No * Can the patient safely return to the preadmission environment? Yes Coverage Notice Reviewer: [email or web address] - Ailyn Vasquez Notice Issued Date-Time: 08/09/2019 12:30 Notice Type: IM Discharge Notice Notice Delivered To: Patient Relationship to Patient: Self Job Captain Name: Delivery Method: HAND - Hand Delivered Gail Days: Prior Verbal Notification: Recipient Understood Notice: Yes Recipient Signature: Yes Med Rec Note Co-signed by Attending: Coverage Notice Comment: IMM explained, signed, given, copy placed in MR Last DP export: 08/09/19 10:26 Patient Name: ARTURO PITT Page [id number] at 1323 All edits/amendments must be made on the electronic document DICTATION DATE: 08/09/19 1323 PIGMENT FURNACE TENDER: EMILIE 08/09/19 1323 RPT#: [id number] DC DATE: STATUS: ADM IN [facility] [address] [place] [address] END OF REPORT
--- NOTE | 2019-08-09 16:00 | NUR ---
DC BACKED TO [facility] AT THIS TIME. REPORT WAS CALL AND GIVEN TO CHARGE NURSE. TRANSPORTED BY FACILITY VAN ACCOMPANIED BY FINISH SPECIALIST. NO IV ACCESS.
--- NOTE | 2019-08-10 11:30 | MORECARE ---
CASE MANAGEMENT DISCHARGE SUMMARY PATIENT: ARTURO PITT UNIT: [id number] ADM DATE: 08/03/19 AGE: 59 : 64 SEX: F ROOM/BED: D.2232 AUTHOR: DIORDOC PHYSICIAN: REFERRING PHYSICIAN: ABRAHAM CASTILLO MD DATE OF SERVICE: 08/10/19 Discharge Plan Patient Name: ARTURO PITT Facility: [facility]:[place] : 1960 Planned Disposition: SNF w Planned Readmission Anticipated Discharge Date: Discharge Date: 08/09/2019 Expected LOS: Initial Reviewer: [id number] Initial Review Date: 08/03/2019 Generated: 08/10/19 12:29 pm Comments DCP- Discharge Planning Updated by [id number]: Ailyn Vasquez on 08/09/19 12:[address] Patient Name: ARTURO PITT Encounter No: [id number] : 1960 Primary Insurance: MEDICARE A & B Anticipated DC Date: Planned Disposition: SNF w Planned Readmission External Planned Provider: : DCP follow-up note: Patient in agreement with discharge plan. No changes to plan. She is discharging back to her fdc care bed at [facility] per [facility]. [facility] states she will pick her up shortly. DC orders/home med list and MAR faxed to [facility]. CM will continue to follow and assist with discharge planning/needs. Ailyn Vasquez DCP- Discharge Planning Updated by [email or web address]: Ailyn Vasquez on 08/09/19 10:[address] Vicki Negron, risk management, would like to see if Dr. Le can discharge to the pen[facility]iary per patient request. supply coordinator has called Jad Viera, he states he will discharge later today. I attempted to call [place] and no one answered on any of the extensions including tank truck operator. I left a message on admissions nurse phone and faxed clinical. CM will continue to follow and assist with discharge planning/needs. DCP- Discharge Planning Updated by [id number]: Ailyn Vasquez on 08/09/19 9:[address] CM was called to the room by the patient and she informed me that she saw Dr. Le this morning and told Dr. Le that she was wanting to be discharged back to [facility]. She states she has already spoken to the DON there (Felicitas). She states Dr. Le told her that she would need to go AMA if she wanted to leave. She has a sitter at the door and the administrative coordinator states their is a hold on her. I read Dr. Ann's note that says she voluntarily came to the hospital but states she SHOULD NOT be allowed to go AMA. I have emailed Vicki Negron, Risk management about this. I also asked administrative coordinator to call Dr. Le and ask if she would like the patient to be discharged, allowed to go AMA or pursue transfer to Psychiatric facility or to [place]. Patient states Dr. Le had told her she could f/u with her GI doctor in [place]. CM will continue to follow and assist with discharge planning/needs. DCP- Discharge Planning Updated by [email or web address]: Ailyn Vasquez on 08/06/19 1:[address] CM called and spoke to Tasha at [facility] to see if they would accept the patient back. Tasha states as long as the patient is able to tolerate a diet, they would accept her back. I informed patient's nurse, Karin. CM will continue to follow and assist with discharge planning/needs. DCP- Discharge Planning Updated by [email or web address]: Ailyn Vasquez on 08/06/19 7:[address] [facility] in [place] have denied admission due to "not medically stable". CM will continue to follow and assist with discharge planning/needs. DCP- Discharge Planning Updated by [id number]: Ailyn Vasquez on 08/05/19 10:[address] Anurag for the [facility] states that [facility] and [facility] inpatient rehab units have denied admission. [place] states she can have [facility] and [facility] a [facility] psych unit is more appropriate (per Anurag). I spoke with Andi, and he wants to continue to find an inpatient psychiatric facility for admission, and I have called Anurag and informed. CM will continue to follow and assist with discharge planning/needs. DCP- Discharge Planning Updated by [email or web address]: Ailyn Vasquez on 08/05/19 7:[address] Jad Viera would like patient transferred to inpatient psychiatric facility at [facility], she has been there recently. Patient also is asking to go to [facility]. She refuses K[facility] this morning. I called Anurag at [facility] and informed after calling house sitter, Jayla. Clinical faxed to [facility]. supply coordinator (Fanta) and primary care nurse (Karin) informed. CM will continue to follow and assist with discharge planning/needs. DCP- Discharge Planning Updated by [id number]: Ailyn Christina on 08/04/19 1:[address] Patient is stating she wants to go to Inpatient Psychiatric Unit at [facility] in [place]. I have an order to transfer when stable. I spoke with Ivy at [facility] and she states she had recently been at [facility] at [facility]. I called the [facility] Admit transfer team and Adalberto states to call back when patient is medically stable to be transferred. CM will continue to follow and assist with discharge planning/needs. DCP- Discharge Planning Updated by [id number]: Bel Nguyen on 08/03/19 12:[address] DC PLAN: Return to [facility] - Resident. ANTICIPATED DC NEEDS: Unknown dc needs CM met with patient to complete initial dc planning assessment. CM educated patient on the CM role and verbal consent given by patient to complete assessment. CM verified patient's address, phone number, and emergency contact phone numbers. Patient lives at [facility]. She had many concerns regarding the penitentiary. 1. She wants rehab but they haven't started it at this time. 2. They are not providing her with oxygen at [facility]. She reports she wears 5 liters @[facility]. 3. She reports APS sent her to the penitentiary after she got evicted from her apartment. 4. They have not stared giving her several of her medications they are working on getting authorization for. CM called the facility and spoke to Ivy - Manager Balance. Addressed her concerns and Ivy stated 1. They were evaluating her for rehab and she started having SI and had to go to Inpatient Psych. Since she has been back she has had abd pain and they have not been able to screen her for rehab. She stated she was not aware of the need for O2 that the patient has not informed them of this info. 3.She was not admitted by [facility] she signed herself in from a different Nursing facility. Ivy stated she will address all her concerns when she returns to the facility. At discharge patient plans to return to [facility] where she resides and feels this is a safe discharge. Transportation provider at discharge will be the nursing facility. CM will continue to follow and will assist as needed with dc plans/needs. Bel Nguyen RN, [facility] DCPIA - Discharge Planning Initial Assessment Updated by [email or web address]: Bel Nguyen on 08/03/19 12:55 pm * Is the patient Alert and Oriented? Yes * How many steps to enter\\exit or inside your home? none * PCP Dr. Castillo - Detention > * Pharmacy Detention Pharmacy * Preadmission Environment Skilled Nursing Detention * Facility Name [facility] * ADLs Partial Dependent * Partial ADLs (Assistance needed) Ambulation Bathing Medication Management * Equipment Bedside Commode * List name and contact numbers for known caregivers / representatives who currently or will assist patient after discharge: Suleman Pitt - Health Care Proxy/Brother - [phone] * Verbal permission to speak to the caregivers and representatives has been obtained from the patient. Yes * Additional services required to return to the preadmission environment? No * Can the patient safely return to the preadmission environment? Yes Coverage Notice Reviewer: [id number] - Ailyn Vasquez Notice Issued Date-Time: 08/09/2019 12:30 Notice Type: IM Discharge Notice Notice Delivered To: Patient Relationship to Patient: Self Microfiche Camera Operator Name: Delivery Method: HAND - Hand Delivered Gail Days: Prior Verbal Notification: Recipient Understood Notice: Yes Recipient Signature: Yes Med Rec Note Co-signed by Attending: Coverage Notice Comment: IMM explained, signed, given, copy placed in MR Last DP export: 08/09/19 12:23 Patient Name: ARTURO PITT Page [id number] at 1130 All edits/amendments must be made on the electronic document DICTATION DATE: 08/10/191128 OFFICE ASST: EMILIE 08/10/191128 RPT#: [id number] DC DATE:08/09/19 STATUS: DIS IN [facility] [address] [place] [address] END OF REPORT
== END 2019-08-09 16:00 | DRG 389 ==
LOC: D.ER 09:46 → D.MS 11:22
PROVIDERS: Emergency Medicine; Family Medicine; ADMIT Legal Medicine; ATTEND Legal Medicine
DX: K56.7 Ileus, unspecified (principal); E87.1 Hypo-osmolality and hyponatremia; F03.90 Unspecified dementia, unspecified severity, without behavioral disturbance, psychotic disturbance, mood disturbance, and anxiety; F25.0 Schizoaffective disorder, bipolar type; F60.89 Other specific personality disorders; K31.84 Gastroparesis

== ENCOUNTER 2019-08-14 16:31 | Emergency (ER) | payer MEDICARE ==
[~2019-08-14] VITALS: Ht 162.6 cm; Wt 113.6 kg
[~2019-08-14 16:31] MED LIST changes: +ATIVAN1 MG PO
[2019-08-14 16:35] VITALS: Ht 162.6 cm; Wt 113.6 kg
[2019-08-14 17:13] VITALS: BP 152/98
== END 2019-08-14 17:13 ==
LOC: D.ER 16:31
DX: R51 Headache (principal); E03.9 Hypothyroidism, unspecified; F32.9 Major depressive disorder, single episode, unspecified; F03.90 Unspecified dementia, unspecified severity, without behavioral disturbance, psychotic disturbance, mood disturbance, and anxiety; K21.9 Gastro-esophageal reflux disease without esophagitis

== ENCOUNTER 2019-11-29 11:45 | Emergency (ER) | payer MEDICARE, MEDICAID ==
[~2019-11-29] VITALS: Ht 162.6 cm; Wt 113.6 kg
[2019-11-29 11:47] VITALS: Ht 162.6 cm; Wt 113.6 kg
[2019-11-29] MEDS ORDERED: AIMOVIG SQ (12:02)
[2019-11-29] MEDS ORDERED: MAXALT MLT10 MG/TAB PO (12:08)
[2019-11-29] MEDS ORDERED: ZOLOFT50 MG PO (12:08)
[2019-11-29] MEDS ORDERED: ULTRAM50 MG PO (12:09)
[2019-11-29 12:27] LABS: BASOPHILS 0.2 % (0-2); EOSINOPHILS 1.7 % (0-7); HEMATOCRIT 41.7 % (36.0-48.0); HEMOGLOBIN 12.7 g/dL (12-16); IMMATURE GRANULOCYTES 0.2 % (0-5); LYMPHOCYTES 21.9 % (15-50); MCH 26.4 pg (26.0-34.0); MCHC 30.5 g/dL (31.0-37.0); MCV 86.7 fL (80.0-100.0); MEAN PLATELET VOLUME 9.9 fL (7.4-10.4); MONOCYTES 8.9 % (2-11); NEUTROPHILS 67.1 % (40-80); PLATELET COUNT 248 10x3/uL (130-400); RBC 4.81 10x6/uL (4.00-5.40); RDW 16.1 % (11.5-14.5); WBC 9.1 10x3/uL (4.8-10.8)
[2019-11-29 12:30] LABS: CALC OSMOLALITY 270 mosm/kg (275-300); CALCIUM 9.5 mg/dL (8.5-10.1); CARBON DIOXIDE 28.7 mmol/L (21.0-32.0); CHLORIDE - SERUM 99 mmol/L (98-107); CREATININE - SERUM 1.1 mg/dL (0.6-1.3); GLUCOSE 85 mg/dL (74-106); POTASSIUM - SERUM 3.8 mmol/L (3.5-5.1); SODIUM 137 mmol/L (136-145); UREA NITROGEN 8 mg/dL (7-18); eGFR NON AFRICAN AMERICAN 54 mL/min (90-120)
[2019-11-29 12:38] LABS: ALBUMIN 3.9 g/dL (3.4-5.0); ALKALINE PHOSPHATASE 159 U/L (30-120); ALT (SGPT) 26 U/L (10-68); BILIRUBIN - TOTAL 0.19 mg/dL (0.2-1.3)
[2019-11-29 12:40] LABS: TROPONIN-I < 0.017 ng/mL (0.000-0.060)
[2019-11-29 13:43] LABS: BILIRUBIN NEGATIVE (NEGATIVE); GLUCOSE NEGATIVE (NEGATIVE); KETONE NEGATIVE (NEGATIVE); NITRITE NEGATIVE (NEGATIVE); SPECIFIC GRAVITY 1.015 (1.005-1.020); UROBILINOGEN NORMAL (NORMAL)
[2019-11-29 13:44] LABS: BACTERIA MODERATE /hpf (NEGATIVE); RED CELLS - URINE OCC /hpf (0-5)
[2019-11-29] MEDS ORDERED: MACROBID100 MG PO (14:19)
[2019-11-29 16:45] VITALS: BP 105/69
== END 2019-11-29 16:46 ==
LOC: D.ER 11:45
PROVIDERS: Family Medicine
DX: N39.0 Urinary tract infection, site not specified (principal); R53.1 Weakness; R55 Syncope and collapse; G62.9 Polyneuropathy, unspecified; E03.9 Hypothyroidism, unspecified; K21.9 Gastro-esophageal reflux disease without esophagitis; F03.90 Unspecified dementia, unspecified severity, without behavioral disturbance, psychotic disturbance, mood disturbance, and anxiety